=== PATIENT | male | born 1950 | race Caucasian/White ===

== ENCOUNTER 2018-10-12 15:46 | Observation (INO) | payer MEDICARE, OTHER ==
[~2018-10-12] VITALS: Ht 185.4 cm; Wt 99.2 kg
[2018-10-12] MEDS ORDERED: TIMOLOL MALEATE5 M2 OD (15:53)
[2018-10-12] MEDS ORDERED: SYNTHROID137 MCG PO (15:53)
--- NOTE | 2018-10-12 19:35 | NUR ---
PT ARRIVED TO THE FLOOR VIA STRETCHER AND TRANSFERED OVER TO THE BED. HE DENIES DIZZINESS, CP AND SOB. TELE IS IN PLACE AT THIS TIME. PT IS ORIENTED TO THE ROOM AND CALL LIGHT IS WITHIN REACH.
--- NOTE | 2018-10-12 19:55 | NUR ---
VITALS AND WEIGHT DONE AND CHARTED. FRESH ICE WATER AND SAND BOX GIVEN. BEDSIDE TABLE AND CALL LIGHT IN REACH.
--- NOTE | 2018-10-12 20:15 | NUR ---
HX ASSESSMENT IS COMPLETE AT THIS TIME. PT REPORTS NOT HAVING DINER WILL GET SANDWICH BOX. PT DENIES FURTHER NEEDS. CALL LIGHT IS WITHIN REACH.
--- NOTE | 2018-10-12 20:51 | NUR ---
ASSESSMENT AND MEDICATIONS DUE. ASSESSMENT DONE. TELE UNIT IN PLACE. MEDICATION GIVEN (SEE MAR). SITTING IN BED EATING SANDWICH. NO REQUESTS AT THIS TIME CALL LIGHT WITHIN REACH.
--- NOTE | 2018-10-13 00:01 | NUR ---
ROUNDED ON pt. RESTING WITH EYES CLOSED, RESPIRATIONS REGULAR IN RATE AND RHYTHM. CALL LIGHT WITHIN REACH.
--- NOTE | 2018-10-13 02:00 | NUR ---
VITALS AND I&OS DONE AND CHARTED. BEDSIDE TABLE AND CALL LIGHT IN REACH. FRESH ICE WATER GIVEN.
--- NOTE | 2018-10-13 02:30 | NUR ---
ASSESSMENT AND MEDICATIONS DUE. VSS. ASSESSMENT DONE. pt DENIES PAIN. NO REQUESTS AT THIS TIME. CALL LIGHT WITHIN REACH.
--- NOTE | 2018-10-13 04:36 | NUR ---
TELE LEAD OFF. pt RESTING WITH EYES CLOSED, RESPIRATIONS REGULAR. CALL LIGTH WITHIN REACH.
--- NOTE | 2018-10-13 04:55 | NUR ---
pt RESTED ON AND OFF DURING SHIFT. TELE 6, NSR, HR IN 70'S. SBA. SL. TOLERATING REGULAR DIET. USES CALL LIGHT APPROPRIATELY.
--- NOTE | 2018-10-13 07:20 | NUR ---
PT RESTING SUPINE IN BED WITH HOB ELEVATED. PT ALERT AND ORIENTED. PT DENIES CHEST PAIN/DISCOMFORT, SOB, PALPITATIONS OR ANY OTHER SYMPTOMS. PT REPORTS POOR SLEEP AT NIGHT DUE TO HOSPITAL BED BUT STATES OTHERWISE HE FEELS GREAT AND HAS NO REQUESTS OR CONCENRS REGARDING THE CARE HE IS RECEIVING. CALL LIGHT AND H20 IN REACH. BEDSIDE REPORT RECEIVED FROM CHET GARCIA.
--- NOTE | 2018-10-13 07:24 | NUR ---
PATIENT RESTING IN BED. PATIENT'S BREAKFAST ORDERED. CALL LIGHT WITHIN REACH. NO OTHER NEEDS AT THIS TIME
[2018-10-13] MEDS ORDERED: METOPROLOL SUCC25 MG PO (08:43)
[2018-10-13] MEDS ORDERED: ATORVASTATIN CA40 MG PO (08:43)
--- NOTE | 2018-10-13 09:59 | NUR ---
PT RESTING SUPINE IN BED, A/O X4. AM MEDS ADMINISTERED. ASSESSMENT COMPLETED. CALL LIGHT AND H20 IN REACH. PT CONTINUES TO DENY S/SX'S OR NEEDS/CONCERNS AT THIS TIME. FRESH ICE WATER WAS PROVIDED.
--- NOTE | 2018-10-13 10:20 | NUR ---
PATIENT RESTING IN BED. VITAL SIGNS AND I&O DONE. CALL LIGHT WITHIN REACH. NO OTHER NEEDS AT THIS TIME
[2018-10-13] MEDS ORDERED: MAGNESIUM250 M1 PO (11:46)
[2018-10-13] MEDS ORDERED: ELIQUIS5 MG PO (11:55)
[2018-10-13] MEDS ORDERED: DILTIAZEM 24HR120 MG PO (11:55)
[2018-10-13] MEDS ORDERED: XARELTO20 MG PO (13:33)
--- NOTE | 2018-10-13 13:39 | NUR ---
PATIENT SITTING UP IN BED. IN ROOM. FINAL VITAL SIGNS WERE OBTAINED BY RN PRIOR TO DISCHARGE FROM THE UNIT. I&O DONE.
--- NOTE | 2018-10-14 12:17 | EKG ---
[facility] [address] [facility] [place], [place] [address] Signed Supraventricular tachycardia with premature ventricular complexes or fusion complexes Left axis deviation Incomplete right bundle branch block Inferior infarct , age undetermined Abnormal ECG No previous ECGs available Confirmed by THALIA SMITH DO ([id number]) on 10/14/2018 12:16:43 PM Electronically Signed By: THALIA SMITH DO 10/14/18 1217 PATIENT NAME: TARIQKITA JOÃO Electrocardiogram DATE OF : 50 PHYSICIAN: THALIA SMITH DO REPORT #: [id number] REPORT IS CONFIDENTIAL AND NOT TO BE RELEASED WITHOUT AUTHORIZATION
--- NOTE | 2018-10-14 12:17 | EKG ---
[facility] [address] [facility] [place] [address] Signed Atrial flutter Inferior infarct (cited on or before 12-OCT-2018) Abnormal ECG When compared with ECG of 12-OCT-2018 15:44, (Unconfirmed) Atrial flutter has replaced Sinus rhythm Vent. rate has decreased BY 74 BPM QRS axis shifted right Nonspecific T wave abnormality has replaced inverted T waves in Inferior leads Confirmed by THALIA SMITH DO ([id number]) on 10/14/2018 12:16:45 PM Electronically Signed By: THALIA SMITH DO 10/14/18 1217 PATIENT NAME: KITA POTTER Electrocardiogram DATE OF : 50 PHYSICIAN: THALIA SMITH DO REPORT #: [id number] REPORT IS CONFIDENTIAL AND NOT TO BE RELEASED WITHOUT AUTHORIZATION
--- NOTE | 2018-10-14 12:17 | EKG ---
[facility] [address] [facility] [place], [place] [address] Signed Atrial flutter with 4:1 AV conduction Incomplete right bundle branch block Inferior infarct (cited on or before 12-OCT-2018) Abnormal ECG When compared with ECG of 12-OCT-2018 16:09, (Unconfirmed) No significant change was found Confirmed by THALIA SMITH DO ([id number]) on 10/14/2018 12:17:03 PM Electronically Signed By: THALIA SMITH DO 10/14/18 1217 PATIENT NAME: KITA POTTER Electrocardiogram DATE OF : 50 PHYSICIAN: THALIA SMITH DO REPORT #: [id number] REPORT IS CONFIDENTIAL AND NOT TO BE RELEASED WITHOUT AUTHORIZATION
== END 2018-10-13 13:45 | disposition home or self-care (01) ==
LOC: ED 15:46 → MS 15:47
PROVIDERS: ADMIT Student in an Organized Health Care Education/Training Program
DX: I48.92 Unspecified atrial flutter (principal); I48.91 Unspecified atrial fibrillation; I47.1 Supraventricular tachycardia; E03.9 Hypothyroidism, unspecified; I49.3 Ventricular premature depolarization; I21.A1 Myocardial infarction type 2; Z79.899 Other long term (current) drug therapy
CPT/HCPCS: 36415; 80048; 80053; 83735; 83880; 84436; 84439; 84443; 84484; 85025; 93005; 93010; 96374; 99285-25; G0378

== ENCOUNTER 2018-11-11 16:39 | Emergency (ER) | payer MEDICARE, OTHER ==
[~2018-11-11] VITALS: Ht 185.4 cm; Wt 98.9 kg
--- OUTSIDE RECORDS SUMMARY | ~2018-11-11 | XMS | Clinical Summary ---
Demographics + + + | Address | [address] | | | [place] [address] | + + + | Home Phone | | + + + | Preferred Language | Unknown | + + + | Marital Status | | + + + | Sabianism Affiliation | Unknown | + + + | Race | Unknown | + + + | Ethnic Group | Unknown | + + + Author + + + | Author | [facility] | + + + | Organization | [facility] | + + + | Address | Unknown | + + + | Phone | Unavailable | + + + Support + + +---------+ + | Name | Relationship | Address | Phone | + + +---------+ + | Argenis Schmid | ECON | Unknown | | + + +---------+ + Care Team Providers + +------+ + | Care Host Hostess Name | Role | Phone | + +------+ + | Alisson Perry MD | PP | | + +------+ + Allergies Not on File Current Medications Not on file Active Problems Not on file Encounters +--------+ + + + + | Date | Type | Specialty | Care Team | Description | +--------+ + + + + | 10/18/ | Documentati | | Marianne Reed, | | | 2019 | on Only | | MD | | +--------+ + + + + from Last 3 Months Social History + +-------+ +--------+------+ | Tobacco Use | Types | Packs/Day | Years | Date | | | | | Used | | + +-------+ +--------+------+ | Never Assessed | | | | | + +-------+ +--------+------+ + + + | Sex Assigned at | Date Recorded | | | | + + + | Not on file | | + + + Plan of Treatment +--------+ + + + + | Date | Type | Specialty | Care Team | Description | +--------+ + + + + | 12/18/ | Initial | | Livan Astorga, | | | 2019 | consult | | MD [address] | | | | | | [place], | | | | | | [place] [address] | | | | | | [phone] | | | | | | | | +--------+ + + + + + + + + + | Health Maintenance | Due Date | Last Done | Comments | + + + + + | Vaccine: | | | | | Dtap/Tdap/Td (1 - | 0 | | | | Tdap) | | | | + + + + + | Colon Cancer | | | | | Screening | 1 | | | | (Colonoscopy) | | | | + + + + + | Vaccine: Zoster (1 | | | | | of 2) | 1 | | | + + + + + | Vaccine: | | | | | Pneumococcal 65+ | 6 | | | | Low/Medium Risk (1 | | | | | of 2 - PCV13) | | | | + + + + + | Vaccine: Influenza | | | | | (Season Ended) | 9 | | | + + + + + Results Not on filefrom Last 3 Months Insurance + +--------+ +------+-------+ + | Payer | Benefi | Subscriber | Type | Phone | Address | | | t Plan | ID | | | | | | / | | | | | | | Group | | | | | + +--------+ +------+-------+ + | MEDICARE | MEDICA | [id number] | | | [address] | | | RE | | | | [place] [address] | | | IP-OP | | | | | + +--------+ +------+-------+ + | [employer] [place] | MUTUAL | [id number] | | | | | | [place] | | | | | | | [place] | | | | | + +--------+ +------+-------+ + + +--------+ +--------+ + + | Guarantor Name | Accoun | Relation to | Date | Phone | Billing Address | | | t Type | Patient | of | | | | | | | | | | + +--------+ +--------+ + + | JAMEL SCHMID | Person | Self [birth year] Home: | [address] | | | al/Fam | | 1951 | [phone] | [place], | | | gael | | | [phone] | [place] [address] | + +--------+ +--------+ + +"
--- OUTSIDE RECORDS SUMMARY | ~2018-11-11 | XMS | Encounter Summary ---
Demographics + + + | Address | [address] | | | [place] [address] | + + + | Home Phone | | + + + | Preferred Language | Unknown | + + + | Marital Status | | + + + | Gnosticism Affiliation | Unknown | + + + | Race | Unknown | + + + | Ethnic Group | Unknown | + + + Author + + + | Author | [facility] [employer] | + + + | Organization | [facility] | + + + | Address | Unknown | + + + | Phone | Unavailable | + + + Support + + +---------+ + | Name | Relationship | Address | Phone | + + +---------+ + | Argenis Schmid | ECON | Unknown | | + + +---------+ + Care Team Providers + +------+ + | Care Beading Sawyer Name | Role | Phone | + +------+ + | Alisson Perry MD | PCP | | + +------+ + Encounter Details +--------+ + + + + | Date | Type | Department | Care Team | Description | +--------+ + + + + | 10/18/ | Documentati | [facility] [place] | Marianne Reed, | | | 2018 | on Only | Sin Miller | [address] | | | | | [address] | [address], | | | | | [facility] [place] | [place] [address] | | | | | [address] | [phone] | | | | | [phone] | | | +--------+ + + + [...] + + | 12/18/ | Initial | Cardiology | Livan Astorga, | | | 2019 | consult | | MD [address] | | | | | | [place], | | | | | | [place] [address] | | | | | | [phone] | | | | | | | | +--------+ + + + + as of this encounter Visit Diagnoses Not on filein this encounter"
--- OUTSIDE RECORDS SUMMARY | ~2018-11-11 | XMS | Clinical Summary ---
Demographics + + + | Address | [address] | | | [place] [address] | + + + | Home Phone | | + + + | Preferred Language | Unknown | + + + | Marital Status | Single | + + + | Oriental Orthodox Affiliation | PRO | + + + [...] [place] | | | [place] | | [address] | | + + + + + Care Team Providers + +------+ + | Care Legal Support Assistant Name | Role | Phone | + +------+ + PP | Unavailable | + +------+ + Source Comments STIVEN is fully live on both [facility] and [facility] InPatient.[facility] Allergies No Known Allergies Current Medications [...]
--- OUTSIDE RECORDS SUMMARY | ~2018-11-11 | XMS | Encounter Summary ---
Demographics + + + | Address | [address] | | | [place] [address] | + + + | Home Phone | | + + + | Preferred Language | Unknown | + + + | Marital Status | | + + + | Gnosticist Affiliation | Unknown | + + + | Race | Unknown | + + + | Ethnic Group | Unknown | + + + Author + + + | Author | [facility] [employer] | + + + | Organization | [facility] [employer] [facility] | + + + | Address | Unknown | + + + | Phone | Unavailable | + + + Support + + +---------+ + | Name | Relationship | Address | Phone | + + +---------+ + | Argenis Schmid | ECON | Unknown | | + + +---------+ + Care Team Providers + +------+ + | Care Welt Insole Channeler Name | Role | Phone | + +------+ + | Alisson Perry MD | PCP | | + +------+ + Encounter Details +--------+ + + + + | Date | Type | Department | Care Team | Description | +--------+ + + + + | 10/18/ | Documentati | [facility] [place] | Marianne Reed, | | | 2018 | on Only | Sin [place] | [address] | | | | | [address] | [address], | | | | | [facility] [place] | [place] [address] | | | | | [address] | [phone] | | | | | [phone] | | | +--------+ + + + [...] | | | | | | [place] [address] | | | | | | [phone] | | | | | | | | +--------+ + + + + as of this encounter Visit Diagnoses Not on filein this encounter"
--- OUTSIDE RECORDS SUMMARY | ~2018-11-11 | XMS | Clinical Summary ---
Demographics + + + | Address | [address] | | | [place] [address] | + + + | Home Phone | | + + + | Preferred Language | Unknown | + + + | Marital Status | | + + + | Restorationist Affiliation | Unknown | + + + | Race | Unknown | + + + | Ethnic Group | Unknown | + + + Author + + + | Author | [facility] [employer] | + + + | Organization | [facility] | + + + | Address | Unknown | + + + | Phone | Unavailable | + + + Support + + +---------+ + | Name | Relationship | Address | Phone | + + +---------+ + | Argenis Schmid | ECON | Unknown | | + + +---------+ + Care Team Providers + +------+ + | Care Puttier Name | Role | Phone | + [...] | | | | | | [place] [address] | | | | | | [phone] | | | | | | | [...] +------+-------+ + | MEDICARE | MEDICA | [id number] | | | [address] | | | RE | | | | [place] [id number] | | | IP-OP | | | | | + +--------+ +------+-------+ + | [employer] [place] | MUTUAL | [id number] | | | | | | [place] | | | | | | | [place] | | | | | + +--------+ [...] | Self [birth year] Home: | [address] | | | al/Fam | | 1951 | [phone] | [place], | | | [place]ael | | | [phone] | [place] [address] | + +--------+ +--------+ + +"
--- OUTSIDE RECORDS SUMMARY | ~2018-11-11 | XMS | Clinical Summary ---
Demographics + + + | Address | [address] | | | [place] [address] | + + + | Home Phone | | + + + | Preferred Language | Unknown | + + + | Marital Status | Single | + + + | Restorationism Affiliation | PRO | + + + [...] [place] | | | [place] | | [address] | | + + + + + Care Team Providers + +------+ + | Care Parts Picker Name | Role | Phone | + +------+ + PP | Unavailable | + +------+ + Source Comments STIVEN is fully live on both [facility] Amb[facility] and [facility] InPatient.[facility] Allergies No Known Allergies Current Medications [...]
[~2018-11-11 16:39] MED LIST: ATORVASTATIN CA40 MG PO; DILTIAZEM 24HR120 MG PO; ELIQUIS5 MG PO; MAGNESIUM250 M1 PO; METOPROLOL SUCC25 MG PO; SYNTHROID137 MCG PO; TIMOLOL MALEATE5 M2 OD; XARELTO20 MG PO
--- OUTSIDE RECORDS SUMMARY | 2018-11-11 16:42 | XMS ---
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 EMadai VISIT COUNT (12 MO.) [address] [facility] TOTAL 2 NOTE: Visits indicate total known visits. 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
--- NOTE | 2018-11-13 13:56 | EKG ---
[facility] [address] [place] [address] Signed Supraventricular tachycardia Inferior infarct (cited on or before 12-OCT-2018) Abnormal ECG When compared with ECG of 12-OCT-2018 17:25, Supraventricular tachycardia has replaced Atrial flutter Vent. rate has increased BY 59 BPM Incomplete right bundle branch block is no longer present Confirmed by LULU SELLERS MD ([id number]) on 11/13/2018 1:56:01 PM Electronically Signed By: LULU SELLERS MD 11/13/18 1356 PATIENT NAME: KITA POTTER Electrocardiogram DATE OF : 50 PHYSICIAN: LULU SELLERS MD REPORT #: [id number] REPORT IS CONFIDENTIAL AND NOT TO BE RELEASED WITHOUT AUTHORIZATION
== END 2018-11-11 20:38 | disposition home or self-care (01) ==
LOC: ED 16:39
DX: I48.91 Unspecified atrial fibrillation (principal); E03.9 Hypothyroidism, unspecified; Z87.891 Personal history of nicotine dependence; Z79.899 Other long term (current) drug therapy
CPT/HCPCS: 80053; 84484; 85025; 93005; 93010; 96374; 96376; 99285-25

== ENCOUNTER 2018-11-22 09:48 | Emergency (ER) | payer MEDICARE, OTHER ==
[~2018-11-22] VITALS: Ht 185.4 cm; Wt 98.9 kg
--- OUTSIDE RECORDS SUMMARY | ~2018-11-22 | XMS | Encounter Summary ---
Demographics + + + | Address | [address] | | | [place] [address] | + + + | Home Phone | | + + + | Preferred Language | Unknown | + + + | Marital Status | | + + + | Shinto Affiliation | Unknown | + + + | Race | Unknown | + + + | Ethnic Group | Unknown | + + + Author + + + | Author | [facility] | | | and [place] | + + + | Organization | [facility] | | | and [...] Team Providers + +------+ + | Care Manufacturing Worker Name | Role | Phone | + [...] (Primary Dx); Lumbar | | | | [place], [place] | [place] [address] | radiculopathy | | | | [address] | [phone] | | | | | [phone] | | | +--------+---------+ + + + [...] encounter Patient Instructions Patient Instructions Francis Sherwood, Associate Dentist - 09/27/2018 12:30 PSTIt was a pleasu [...] 09/27/2018 1230 PST Marilu Rodriguez PA-C [address] [facility] [address] [address] [place] [address] PHONE: FAX: NEUROSURGERY FOLLOW-UP CHIEF COMPLAINT: Chief [...] has no apparent deficits with short or halfway memory. CRANIAL NERVES: II: Acuity is intact. [...] Description | +--------+---------+ + + + | 11/28/ | Office | Physical Medicine | Michael Talley, | | | 2018 | Visit | and Rehabilitation | [place] | | | | | | [address] | | | | | | [place] [address] | | | | | | [phone] | | | | | | | | +--------+---------+ + + + | 01/29/ | Office | Cardiology | Gordon Paula, | | | 2018 | Visit | | [address] | | | | | | [place], | | | | | | [place] [address] | | | | | | [phone] | | | | | | | | +--------+---------+ + + + | 09/26/ | Office | Neurosurgery | Darlyn Rodriguez | | | 2019 | Visit | | [place] | | | | | | [place] [place], | | | | | | [place] [address] | | | | | | [phone] | | | | | | | [...]
--- OUTSIDE RECORDS SUMMARY | ~2018-11-22 | XMS | Encounter Summary ---
Demographics + + + | Address | [address] | | | [place] [address] | + + + | Home Phone | | + + + | Preferred Language | Unknown | + + + | Marital Status | | + + + | Christian Affiliation | Unknown | + + + | Race | Unknown | + + + | Ethnic Group | Unknown | + + + Author + + + | Author | [facility] [employer] | + + + | Organization | [facility] [employer] [facility] | + + + | Address | Unknown | + + + | Phone | Unavailable | + + + Support + + +---------+ + | Name | Relationship | Address | Phone | + + +---------+ + | Argenis Schmid | ECON | Unknown | | + + +---------+ + Care Team Providers + +------+ + | Care Career Discovery Teacher Name | Role | Phone | + [...] | | | | | | [place] | | | | | | [address] | | | | | | [phone] | | | +--------+ + + + [...] | +--------+ + + + + | 12/03/ | Documentati | Cardiology | Livan Astorga, | | | 2018 | on Only | | MD [address] | | | | | | [place] | | | | | | [place] [address] | | | | | | [phone] | | | | | | | | +--------+ + + + + | 01/21/ | Office | Cardiology | Aga Kelley | | | 2019 | Visit | | [address] | | | | | [address] | | | | | | [place] [address] | | | | | | [phone] | | | | | | | | +--------+ + + + + as of this encounter Visit Diagnoses Not on filein this encounter"
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
--- OUTSIDE RECORDS SUMMARY | ~2018-11-22 | XMS | Encounter Summary ---
Demographics + + + | Address | [address] | | | [place] [address] | + + + | Home Phone | | + + + | Preferred Language | Unknown | + + + | Marital Status | | + + + | Caodaism Affiliation | Unknown | + + + | Race | Unknown | + + + | Ethnic Group | Unknown | + + + Author + + + | Author | [facility] | + + + | Organization | [facility] [facility] | + + + | Address | Unknown | + + + | Phone | Unavailable | + + + Support + + +---------+ + | Name | Relationship | Address | Phone | + + +---------+ + | Argenis Schmid | ECON | Unknown | | + + +---------+ + Care Team Providers + +------+ + | Care Toter Name | Role | Phone | + [...] | | | | | | [place] | | | | | | [address] | | | | | | [phone] | | | +--------+ + + + [...] | | | | | | [place] [address] | | | | | | [phone] | | | | | | | | +--------+ + + + + | 01/21/ | Office | Cardiology | Aga Kelley | | | 2019 | Visit | | [address] | | | | | | [address] | | | | | | [place] [address] | | | | | | [phone] | | | | | | | | +--------+ + + + + as of this encounter Visit Diagnoses Not on filein this encounter"
--- OUTSIDE RECORDS SUMMARY | ~2018-11-22 | XMS | Encounter Summary ---
Demographics + + + | Address | [address] | | | [place] [address] | + + + | Home Phone | | + + + | Preferred Language | Unknown | + + + | Marital Status | | + + + | Muslim Affiliation | Unknown | + + + | Race | Unknown | + + + | Ethnic Group | Unknown | + + + Author + + + | Author | [facility] [employer] | + + + | Organization | [facility] [employer] | + + + | Address | Unknown | + + + | Phone | Unavailable | + + + Support + + +---------+ + | Name | Relationship | Address | Phone | + + +---------+ + | Argenis Schmid | ECON | Unknown | | + + +---------+ + Care Team Providers + +------+ + | Care Roll Cleaner Name | Role | Phone | + +------+ + | Alisson Perry MD | PCP | | + +------+ + Encounter Details +--------+ + + + + | Date | Type | Department | Care Team | Description | +--------+ + + + + | 10/18/ | Documentati | [facility] [place] | [place] Reed, | | | 2018 | on Only | Sin Miller | [address] | | | | | [address] | [address], | | | | | [facility] [place] | [place] [address] | | | | | [address] | [phone] | | | | | [phone] | | | +--------+ + + + + Social History + +-------+ +--------+------+ | Tobacco [...] | 2018 | on Only | | [address] | | | | | | [place] | | | | | | [place] [address] | | | | | | [phone] | | | | | | | | +--------+ + + + + | 01/21/ | Office | Cardiology | Aga Kelley | | | 2019 | Visit | | [address] | | | | | | [address] | | | | | | [place] [address] | | | | | | [phone] | | | | | | | | +--------+ + + + + as of this encounter Visit Diagnoses Not on filein this encounter"
--- OUTSIDE RECORDS SUMMARY | ~2018-11-22 | XMS | Clinical Summary ---
Demographics + + + | Address | [address] | | | [place] [address] | + + + | Home Phone | | + + + | Preferred Language | Unknown | + + + | Marital Status | Single | + + + | Anglican Affiliation | PRO | + + + | Race | White | + + + | Ethnic Group | Not or | + + + Author + + + | Organization | Unknown | + + + | Address | Unknown | + + + | Phone | Unavailable | + + + Support + + + + + | Name | Relationship | Address | Phone | + + + + + | STELLA POTTER&JONEL | ECON | [place] | | | [place] | | [address] | | + + + + + Care Team Providers + +------+ + | Care Production Clerks Supervisor Name | Role | Phone | + +------+ + PP | Unavailable | + +------+ + Source Comments STIVEN is fully live on both [facility] Ambulatory and [facility] InPatient.[facility] Allergies No Known Allergies Current Medications Not on file Active Problems Not on file Social History + +-------+ +--------+------+ | Tobacco [...] | + + + Plan of Treatment + + + + + | Health Maintenance | Due Date | Last Done | Comments | + + + + + | Pneumococcal (Adult) | | | | | (1 of 2 - PCV13) | 6 | | | + + + + + | Influenza (Flu) | | | | | vaccination (#1) | 8 | | | + + + + + Results Not on filefrom Last 3 Months"
--- OUTSIDE RECORDS SUMMARY | ~2018-11-22 | XMS | Encounter Summary ---
Demographics + + + | Address | [address] | | | [place] [address] | + + + | Home Phone | | + + + | Preferred Language | Unknown | + + + | Marital Status | | + + + | Shinto Affiliation | Unknown | + + + | Race | Unknown | + + + | Ethnic Group | Unknown | + + + Author + + + | Author | [facility] | + + + | Organization | [facility] | + + + | Address | Unknown | + + + | Phone | Unavailable | + + + Support + + +---------+ + | Name | Relationship | Address | Phone | + + +---------+ + | Argenis Schmid | ECON | Unknown | | + + +---------+ + Care Team Providers + +------+ + | Care Java Web Application Developer Name | Role | Phone | + [...] | | | | of breath) | [address] | [address] | | | | | on exertion | Phone: | Phone: | | | | | Narinder | [phone] | [phone] | | | | | coronary | Fax: | Fax: | | | | | artery | [phone] | [phone] | | | | | calcium | [...] | Specialty | Sleep | Diagnoses | [place], | Lab, [facility] | | | Services | Medicine | Paroxysmal | Livan Thomson, | [facility] | | | Required | | atrial | MD [address] | Sleep | | | | | fibrillation | [address] | Disorders | | | | | ([facility]LY [facility]) | [address] | [facility] | | | | | Obstructive | [place], [place] | HOSPITAL | | | | | sleep apnea | [address] | [address] | | | | | syndrome in | Phone: | [address] | | | | | adult SOB | [phone] | [place], [place] | | | | | (shortness | Fax: | [address] | | | | | of breath) | [phone] | Phone: | | | | | on exertion | | [phone] | | | | | | | Fax: | | | | | | | [phone] | + + + + + + [...] | DR | | | | | (FORM[facility]) | [address] | [place] | | | | | Frequent | [place] | [address] | | | | | PVCs | [address] | Phone: | | | | | | Phone: | [phone] | | | | | | [phone] | Fax: | | | | | | Fax: | [phone] | | | | | | [phone] | | + + + + + [...] Dr Oshea | | | | | ([facility]) | [place], | [place] | | | | | Procedures | [place] [address] | [address] Phone: | | | | | Consult | Phone: | [phone] | | | | | | [phone] | Fax: | | | | | | Fax: | [phone] | | | | | | [phone] | | +--------+--------+ + + + + Encounter Details +--------+ + + + + | Date | Type | Department | Care Team | Description | +--------+ + + + + | 11/19/ | Initial | [facility] [place] | Livan Astorga, | Paroxysmal atrial | | 2019 | consult | Cardiology Garo | [address] | fibrillation ([facility]) | | | | [address] | [place], [place]na (Primary Dx); | | | | [place], [place] | [place] [address] | Frequent PVCs; | | | | [address] | [phone] | Hyperlipidemia, | | | | [phone] | | unspecified | | | | [...] cardiology evaluati on, after being admitted to [facility] 10/12-04/25 for paroxysmal atrial fibrillati on. [...] episode in November, was seen at [facility] ER 11/11/18, and a repeat [...] been followed by Gordon Paula MD in [place] for frequent PVCs, h ad become asymptomatic [...] for a sleep stud y at the [facility] sleep clinic. I will see him [...] Diagnosis Date Atrial fibrillation (HCC) 10/12/2018 Paroxysmal, [id number] VASc 2 BPH (benign prostatic hyperplasia) DDD [...] [place], | | | | | | [place] [address] | | | | | | [phone] | | | | | | | | +--------+ + + + + | 01/21/ | Office | Cardiology | Allie Aga | | | 2019 | Visit | | [address] | | | | | | [address] | | | | | | [place] [address] | | | | | | [phone] | | | | | | | [...] + + + + | Calculated P Union | 72 | degrees | [facility] | + + + + + | Calculated R Union | 68 | degrees | [facility] | + + + + + | Calculated T [place] | 71 | degrees | [facility] | + + + [...] | | | | | by [facility] [place] Read Only, | | | | | [facility] David (502), | | | | | assignment editor Dung Dominguez | | | | | (253) on 11/19/2018 | | | | | 9:17:15 AM | | | + + + + + + + + + + | Performing | Address | City/State/Zipcode | Phone Number | | Organization | | | | + + + + + | [facility] | [address] | [place] [address] | | + + + + + [...]
--- OUTSIDE RECORDS SUMMARY | ~2018-11-22 | XMS | Clinical Summary ---
Demographics + + + | Address | [address] | | | [place] [address] | + + + | Home Phone | | + + + | Preferred Language | Unknown | + + + | Marital Status | | + + + | Moravian Affiliation | Unknown | + + + | Race | Unknown | + + + | Ethnic Group | Unknown | + + + Author + + + | Author | [facility] | | | and Arnolana | + + + | Organization | [facility] | | | and [...] Team Providers + +------+ + | Care Cutter Down Name | Role | Phone | + +------+ + | Alisson Perry MD | PP | | + +------+ + Allergies No Known Allergies Medications + + + +---------+------+------+-------+ | Medication | Sig | Dispensed | Refills | Star | End | Statu | | | | | | t | Date | s | | | | | | Date | | | + + + +---------+------+------+-------+ | levothyroxine | take 1 tablet by | | 1 | 10/0 | | Activ | | (SYNTHROID, | mouth once daily | | | 3/20 | | e | | LEVOTHROID) 137 MCG | | | | 16 | | | | tablet | | | | | | | + + + +---------+------+------+-------+ | ALOE VERA JUICE PO | Take by mouth. | | 0 | | | Activ | | | Drinks 4oz glass | | | | | e | | | every am | | | | | | + + + +---------+------+------+-------+ Active Problems + + + | Problem | Noted Date | + + + | Lumbar radiculopathy | 09/13/2017 | + + + | Foraminal stenosis of lumbar region | 09/13/2017 | + + + | Lumbar facet arthropathy | 09/13/2017 | + + + | Spondylosis of lumbar joint | 09/13/2017 | + + + | Degenerative disc disease, lumbar | 09/13/2017 | + + + | PVC (premature ventricular contraction) | 12/27/2016 | + + + + + | Overview: Echocardiogram 12/14/2016 shows the left ventricle | | is normal in size, wall thickness and systolic function EF | | 55-60%, the right ventricle is normal in size and function, | | pulmonary artery systolic pressure could not be assessed due to | | the absence of adequate TR jet, there is no pericardial effusion. | | Dr. Ildefonso Pillai. | + + + + + | Hyperlipidemia | 12/27/2016 | + + + | Ventricular premature depolarization | 12/27/2016 | + + + + + | Overview: CT Heart 12/14/2016 The calcium score is 756, which | | is between the 75th and 90th percentile. Polly Tan MD | + + + + + | Preventative health care | 06/14/2016 | + + + | GERD (gastroesophageal reflux disease) | 06/14/2016 | + + + | Dysphagia | 06/14/2016 | + + + | Prostatic hyperplasia, benign localized | | + + + | Urinary frequency | | + + + + + | Overview: at night | + + + +---+ | Peyronie's disease | | + +---+ | Palpitations | | + +---+ + + | Overview: if he stands up to fast | + + + +---+ | Impaired fasting glucose | | + +---+ | Hypothyroidism | | + +---+ | Heartburn | | + +---+ | Allergic rhinitis | | + +---+ | PVC's (premature ventricular contractions) | | + +---+ | Chest pain | | + +---+ + + | Overview: Stress Test on 01/13/2017 shows exercise EKG is | | negative, blood pressure response is normal, the patient had | | Fatigue but no chest pain during the procedure, there is | | occasional premature atrial contractions during procedure, | | exercise tolerance is average for age, normal exercise sestamibi | | myocardial perfusion imaging study. normal left ventricular | | size, wall thickness and motion. Evidence of inferior wall soft | | tissue attenuation. Preserved left ventricular systolic | | function. LVEF by gated SPECT is 67 %. | + + Encounters +--------+---------+ + + + | Date | Type | Specialty | Care Team | Description | +--------+---------+ + + + | 09/27/ | Office | | Darlyn Rodriguez | Degenerative disc | | 2019 | Visit | | GALILEA Milner | disease, lumbar | | | | | | (Primary Dx); Lumbar | | | | | | radiculopathy | +--------+---------+ + + + from Last 3 Months Family History + + +------+ + | Medical History | Relation | Name | Comments | + + +------+ + | No known problems | Brother | | | + + +------+ + | No known problems | Child | | | + + +------+ + | No known problems | Child | | | + + +------+ + | No known problems | Child | | | + + +------+ + | Colon cancer | Father | | | + + +------+ + | Early | Father | | Suicide | + + +------+ + | Heart disease | Father | | | + + +------+ + | No known problems | Maternal | | | | | Grandfath | | | | | er | | | + + +------+ + | No known problems | Maternal | | | | | Grandmoth | | | | | er | | | + + +------+ + | Asthma | Mother | | | + + +------+ + | Diabetes | Mother | | | + + +------+ + | Heart failure | Mother | | | + + +------+ + | Lymphoma | Mother | | | + + +------+ + | No known problems | Paternal | | | | | Grandfath | | | | | er | | | + + +------+ + | No known problems | Paternal | | | | | Grandmoth | | | | | er | | | + + +------+ + | No known problems | Sister | | | + + +------+ + + +------+ + + | Relation | Name | Status | Comments | + +------+ + + | Brother | | | | + +------+ + + | Child | | | | + +------+ + + | Child | | | | + +------+ + + | Child | | | | + +------+ + + | Father | | | Suicide, starvation | | | | (Age | | | | | 89) | | + +------+ + + | Maternal Grandfather | | | | + +------+ + + | Maternal Grandmother | | | | + +------+ + + | Mother | | | YOA, CHF | | | | (Age | | | | | 85) | | + +------+ + + | Paternal Grandfather | | | | + +------+ + + | Paternal Grandmother | | | | + +------+ + + | Sister | | | | + +------+ + + Social History + + + [...] recent travel history available. | + + Last Filed Vital Signs + + + + | Vital Sign | Reading | Time Taken | + + + + | Blood Pressure | 116/74 | 09/27/2018 1247 PST | + + + + | Pulse | 81 | 09/27/2018 1247 PST | + + + + | Temperature | 36.4 C (97.5 F) | 06/15/2016 1100 PST | + + + + | Respiratory Rate | 16 | 12/21/2017 0949 PDT | + + + + | Oxygen Saturation | 96% | 06/15/2016 1330 PST | + + + + | Inhaled Oxygen | - | - | | Concentration | | | + + + + | Weight | 99.5 kg (219 lb 6.4 | 09/27/20181246 PST | | | oz) | | + + + + | Height | 185.4 cm (6' 1") | 09/27/20181246 PST | + + + + | Body Mass Index | 28.95 | 09/27/20181246 PST | + + + + Plan of Treatment +--------+---------+ + + + | Date | Type | Specialty | Care Team | Description | +--------+---------+ + + + | 11/28/ | Office | | Michael Talley, | | | 2018 | Visit | | GALILEA [address] | | | | | | [address] [place] | | | | | | [place] [address] | | | | | | [phone] | | | | | | | | +--------+---------+ + + + | 01/29/ | Office | | Gordon Paula, | | | 2018 | Visit | | MD Mercedes Moreno | | | | | | [place], | | | | | | [place] [address] | | | | | | [phone] | | | | | | | | +--------+---------+ + + + | 09/26/ | Office | | Darlyn Rodriguez | | | 2019 | Visit | | GALILEA Milner | | | | | | [place], | | | | | | [place] [address] | | | | | | [phone] | | | | | | | | +--------+---------+ + + + + + + + + | Health Maintenance | Due Date | Last Done | Comments | + + + + + | Hepatitis C | | | | | Screening | 1 | | | + + + + + | Vaccine: | | | | | Dtap/Tdap/Td (1 - | 0 | | | | Tdap) | | | | + + + + + | Vaccine: Zoster (2 | | 06/23/2011 | | | of 3) | 2 | | | + + + + + | Adult Annual | | | | | Wellness Visit | 5 | | | + + + + + | Statin Therapy | | | | | (optimal intensity) | 5 | | | + + + + + | AAA Screening | | | | | | 6 | | | + + + + + | Vaccine: | | 05/12/2017 | | | Pneumococcal 65+ | 8 | | | | Low/Medium Risk (2 | | | | | of 2 - PCV13) | | | | + + + + + | Vaccine: Influenza | | 05/12/2017 | | | (Season Ended) | 9 | | | + + + + + | Colorectal Cancer | | 06/15/2016, 05/01/2006, | | | Screening | 6 | 05/01/2006 | | | (Colonoscopy) | | | | + + + + + Results Not on filefrom Last 3 Months Insurance + +--------+ +--------+ +---------+--------+ | Payer | Benefi | Subscriber | Effect | Phone | Address | Type | | | t Plan | ID | sendy | | | | | | / | | Dates | | | | | | Group | | | | | | + +--------+ +--------+ +---------+--------+ | MEDICARE | MEDICA | [id number] | 11/06/19 | [phone] | | Medica | | | RE | | 16-Pre | 5 | | re | | | PART A | | sent | | | | | | AND B | | | | | | + +--------+ +--------+ +---------+--------+ | [employer] [place] | UNITED | [id number] | 11/06/19 | [phone] | | Indemn | | | OF | | 16-Pre | 0 | | ity | | | [place] | | sent | | | | | | MDCR | | | | | | | | SUPPL | | | | | | + +--------+ +--------+ +---------+--------+ + +--------+ +--------+ + + | Guarantor Name | Accoun | Relation to | Date | Phone | Billing Address | | | t Type | Patient | of | | | | | | | | | | + +--------+ +--------+ + + | Jamel Schmid | Person | Self | [birth year] | [address] | | | al/Fam | | [address] | [phone] | [place], | | | gael | | | [address] (Home) | [place] [address] | + +--------+ +--------+ + + Advance Directives Patient has advance care planning documents on file. For more information, please contact:[facility] [place] [address]
--- OUTSIDE RECORDS SUMMARY | ~2018-11-22 | XMS | Clinical Summary ---
Demographics + + + | Address | [address] | | | [place] [address] | + + + | Home Phone | | + + + | Preferred Language | Unknown | + + + | Marital Status | Single | + + + | Catholic Affiliation | PRO | + + + [...] [place] | | | [place] | | [address] | | + + + + + Care Team Providers + +------+ + | Care Patient Financial Representative Name | Role | Phone | + +------+ + PP | Unavailable | + +------+ + Source Comments STIVEN is fully live on both [facility] Ambulatory and [facility] InPatient.[facility] [...]
--- OUTSIDE RECORDS SUMMARY | ~2018-11-22 | XMS | Encounter Summary ---
Demographics + + + | Address | [address] | | | [place] [address] | + + + | Home Phone | | + + + | Preferred Language | Unknown | + + + | Marital Status | | + + + | Hinduism Affiliation | Unknown | + + + | Race | Unknown | + + + | Ethnic Group | Unknown | + + + Author + + + | Author | [facility] | + + + | Organization | [facility] [employer] [facility] | + + + | Address | Unknown | + + + | Phone | Unavailable | + + + Support + + +---------+ + | Name | Relationship | Address | Phone | + + +---------+ + | Argenis Schmid | ECON | Unknown | | + + +---------+ + Care Team Providers + +------+ + | Care Administrative Fellow Name | Role | Phone | + +------+ + | Alisson Perry MD | PCP | | + +------+ + Encounter Details +--------+ + + + + | Date | Type | Department | Care Team | Description | +--------+ + + + + | 10/18/ | Documentati | [facility] [place] | Marianne Reed, | | | 2018 | on Only | Sin Miller | [address] | | | | | [address] | [address] Foreman, | | | | | [facility] | [place] [address] | | | | | [address] | [phone] | | | | | [phone] | | | +--------+ + + + [...] | | | | | | [place] [address] | | | | | | [phone] | | | | | | | | +--------+ + + + + | 01/21/ | Office | Cardiology | Aga Kelley | | | 2019 | Visit | | [address] | | | | | | [address] | | | | | | [place] [address] | | | | | | [phone] | | | | | | | | +--------+ + + + + as of this encounter Visit Diagnoses Not on filein this encounter"
--- OUTSIDE RECORDS SUMMARY | ~2018-11-22 | XMS | Clinical Summary ---
Demographics + + + | Address | [address] | | | [place] [address] | + + + | Home Phone | | + + + | Preferred Language | Unknown | + + + | Marital Status | | + + + | Orthodoxy Affiliation | Unknown | + + + | Race | Unknown | + + + | Ethnic Group | Unknown | + + + Author + + + | Author | [facility] | + + + | Organization | [facility] [email or web address] [facility] | + + + | Address | Unknown | + + + | Phone | Unavailable | + + + Support + + +---------+ + | Name | Relationship | Address | Phone | + + +---------+ + | Argenis Schmid | ECON | Unknown | | + + +---------+ + Care Team Providers + +------+ + | Care Electronics Tech Name | Role | Phone | + [...] + + + + | Overview: Paroxysmal, [id number] VASc 2 | + + + +---+ | Frequent PVCs | | + +---+ | Hyperlipidemia | | + +---+ | Hypothyroidism | | + +---+ Encounters +--------+ + + + + | Date | Type | Specialty | Care Team | Description | +--------+ + + + + | 11/21/ | Documentati | | Deyanira Smith, | Other ([facility] | 2018 | on Only | | [place] | labs 11/11/18) | +--------+ + + + + | 11/20/ | Documentati | | Deyanira Smith, | Other ([facility] | 2018 | on Only | | [...] | Documentati | | Livan Astorga, | | | 2018 | on Only | | MD [address] | | | | | | [place], | | | | | | [place] [address] | | | | | | [phone] | | | | | | | | +--------+ + + + + | 01/21/ | Office | | Aga Kelley | | | 2019 | Visit | | [address] | | | | | | [address] | | | | | | [place] [address] | | | | | | [phone] | | | | | | | [...] Ventricular Rate | 61 | BPM | [facility] [...] + + + + | Calculated P [place] | 72 | degrees | [facility] | + + + + + | Calculated R [place] | 68 | degrees | [facility] | + + + + + | Calculated T [place] | 71 | degrees | [facility] [...] | | | | | by [facility] [place] Read Only, | | | | | [facility] David (502), | | | | | order editor Dung Dominguez | | | | | (253) on 11/19/2018 | | | | | 9:17:15 AM | | | + + + + + + + + + + | Performing | Address | City/State/Zipcode | Phone Number | | Organization | | | | + + + + + | [facility] | [address] | [place] [address] | | + + + + + [...] +------+-------+ + | MEDICARE | MEDICA | [id number] | | | [address] | | | RE | | | | [place], [place] [address] | | | IP-OP | | | | | + +--------+ +------+-------+ + | [employer] [place] | MUTUAL | [id number] | | | | | | [place] | | | | | | | [place] | | | | | + +--------+ [...] | Self | [birth year] Home: | [address] | | | al/Fam | | 1 | [phone] | [place], | | | gael | | | [address] | [place] [address] | + +--------+ +--------+ + +
--- OUTSIDE RECORDS SUMMARY | ~2018-11-22 | XMS | Encounter Summary ---
Demographics + + + | Address | [address] | | | [place] [address] | + + + | Home Phone | | + + + | Preferred Language | Unknown | + + + | Marital Status | | + + + | Jehovah'S Witness Affiliation | Unknown | + + + | Race | Unknown | + + + | Ethnic Group | Unknown | + + + Author + + + | Author | [facility] | + + + | Organization | [facility] [employer] [facility] | + + + | Address | Unknown | + + + | Phone | Unavailable | + + + Support + + +---------+ + | Name | Relationship | Address | Phone | + + +---------+ + | Argenis Schmid | ECON | Unknown | | + + +---------+ + Care Team Providers + +------+ + | Care Groover And Striper Operator Name | Role | Phone | [...] + + | 11/21/ | Documentati | GUILIA Romano | Deyanira Smith, | Other ([facility] | | 2019 | on Only | Cardiology Angela | DAREK | labs 11/11/18) | | | | [address] | | | | | | [place], [place] | | | | | | [address] | | | | | | [phone] | | | +--------+ + + + [...] | | | | | | [place] [address] | | | | | | [phone] | | | | | | | | +--------+ + + + + | 01/21/ | Office | Cardiology | Aga Kelley | | | 2019 | Visit | | [address] | | | | | | [address] | | | | | | [place] [address] | | | | | | [phone] | | | | | | | | +--------+ + + + + as of this encounter Visit Diagnoses Not on filein this encounter"
--- OUTSIDE RECORDS SUMMARY | ~2018-11-22 | XMS | Encounter Summary ---
Demographics + + + | Address | [address] | | | [place] [address] | + + + | Home Phone | | + + + | Preferred Language | Unknown | + + + | Marital Status | | + + + | Nondenominational Affiliation | Unknown | + + + | Race | Unknown | + + + | Ethnic Group | Unknown | + + + Author + + + | Author | [facility] | | | and Arnolana | + + + | Organization | [facility] | | [...] Providers + +------+ + | Care Hadoop Developer Name | Role | Phone | [...] (Primary Dx); Lumbar | | | | [place], [place] | [place] [address] | radiculopathy | | | | [address] | [phone] | | | | | [phone] | | | +--------+---------+ + + + [...] encounter Patient Instructions Patient Instructions Francis Sherwood, Basket Assembler - 09/27/2018 12:30 PSTIt was a pleasu [...] 09/27/2018 1230 PST Marilu Rodriguez PA-C [address], [address] [place] [address] PHONE: FAX: NEUROSURGERY FOLLOW-UP CHIEF COMPLAINT: Chief [...] has no apparent deficits with short or nursing home memory. CRANIAL NERVES: II: Acuity is intact. [...] | | | | | | [place] [address] | | | | | | [phone] | | | | | | | | +--------+---------+ + + + | 01/29/ | Office | Cardiology | Gordon Paula, | | | 2018 | Visit | | [address] [place] | | | | | | [place], | | | | | | [place] [address] | | | | | | [phone] | | | | | | | | +--------+---------+ + + + | 09/26/ | Office | Neurosurgery | Darlyn Rodriguez | | | 2019 | Visit | | G[address]ILEA [address]ner [address] | | | | | | [place], | | | | | | [place] [address] | | | | | | [phone] | | | | | | | [...]
--- OUTSIDE RECORDS SUMMARY | ~2018-11-22 | XMS | Clinical Summary ---
Demographics + + + | Address | [address] | | | [place] [address] | + + + | Home Phone | | + + + | Preferred Language | Unknown | + + + | Marital Status | | + + + | Baptism Affiliation | Unknown | + + + | Race | Unknown | + + + | Ethnic Group | Unknown | + + + Author + + + | Author | [facility] | + + + | Organization | [facility] | + + + | Address | Unknown | + + + | Phone | Unavailable | + + + Support + + +---------+ + | Name | Relationship | Address | Phone | + + +---------+ + | Argenis Schmid | ECON | Unknown | | + + +---------+ + Care Team Providers + +------+ + | Care Student Finance Advisor Name | Role | Phone | + [...] + + + + | Overview: Paroxysmal, [id number] VASc 2 | + + + +---+ [...] | | | | | | [place] [address] | | | | | | [phone] | | | | | | | | +--------+ + + + + | 01/21/ | Office | | Aga Kelley | | | 2019 | Visit | | [address] | | | | | | [address] | | | | | | [place] [address] | | | | | | [phone] | | | | | | | [...] + + + + | Calculated P [place] | 72 | degrees | [facility] | + + + + + | Calculated R [place] | 68 | degrees | [facility] | + + + + + | Calculated T [place] | 71 | degrees | [facility] [...] | | | | | by [facility] [place] Read Only, | | | | | [facility] [address] (502), | | | | | associate editor Dung Dominguez | | | | | (253) on 11/19/2018 | | | | | 9:17:15 AM | | | + + + + + + + + + + | Performing | Address | City/State/Zipcode | Phone Number | | Organization | | | | + + + + + | [facility] | [address] | [place] [address] | | + + + + + [...] +------+-------+ + | MEDICARE | MEDICA | [id number] | | | [address] | | | RE | | | | [place], [place] [address] | | | IP-OP | | | | | + +--------+ +------+-------+ + | [employer] [place] | MUTUAL | [id number] | | | | | | [place] | | | | | | | [place] | | | | | + +--------+ [...] | Self | [birth year] Home: | [address] | | | al/Fam | | [phone] | [phone] | [place], | | | gael | | | [address] | [place] [address] | + +--------+ +--------+ + +
--- OUTSIDE RECORDS SUMMARY | ~2018-11-22 | XMS | Encounter Summary ---
Demographics + + + | Address | [address] | | | [place] [address] | + + + | Home Phone | | + + + | Preferred Language | Unknown | + + + | Marital Status | | + + + | Latter Day Affiliation | Unknown | + + + | Race | Unknown | + + + | Ethnic Group | Unknown | + + + Author + + + | Author | [facility] | + + + | Organization | [facility] [facility] | + + + | Address | Unknown | + + + | Phone | Unavailable | + + + Support + + +---------+ + | Name | Relationship | Address | Phone | + + +---------+ + | Argenis Schmid | ECON | Unknown | | + + +---------+ + Care Team Providers + +------+ + | Care Contact Assembler Name | Role | Phone | + [...] SOW | | | | | | [place], [place] | | | | | | [address] | | | | | | [phone] | | | +--------+ + + + [...] | | | | | | [place] [address] | | | | | | [phone] | | | | | | | | +--------+ + + + + | 01/21/ | Office | Cardiology | Aga Kelley | | | 2019 | Visit | | [address] | | | | | | [address] | | | | | | [place] [address] | | | | | | [phone] | | | | | | | | +--------+ + + + + as of this encounter Visit Diagnoses Not on filein this encounter"
--- OUTSIDE RECORDS SUMMARY | ~2018-11-22 | XMS | Clinical Summary ---
Demographics + + + | Address | [address] | | | [place] [address] | + + + | Home Phone | | + + + | Preferred Language | Unknown | + + + | Marital Status | | + + + | Jehovah'S Witness Affiliation | Unknown | + + + | Race | Unknown | + + + | Ethnic Group | Unknown | + + + Author + + + | Author | [facility] | | | and Arnolana | + + + | Organization | [facility] | | | and [...] Team Providers + +------+ + | Care Meal Attendant Name | Role | Phone | + [...] | 09/27/ | Office | | Darlyn oRdriguez | Degenerative disc | | 2019 | [...] | | | | | | [place] [address] | | | | | | [phone] | | | | | | | | +--------+---------+ + + + | 01/29/ | Office | | Gordon Paula, | | | 2018 | Visit | | MD Mercedes Moreno | | | | | | [place], | | | | | | [place] [address] | | | | | | [phone] | | | | | | | | +--------+---------+ + + + | 09/26/ | Office | | Darlyn Rodriguez | | | 2019 | Visit | | GALILEA Milner | | | | | | [place], | | | | | | [place] [address] | | | | | | [phone] | | | | | | | [...] +--------+ +---------+--------+ | MEDICARE | MEDICA | [id number] | 11/06/19 | [phone] | | Medica | | | RE | | 16-Pre | 5 | | re | | | PART A | | sent | | | | | | AND B | | | | | | + +--------+ +--------+ +---------+--------+ | [employer] | UNITED | [id number] | 11/06/19 | [phone] | | Indemn | | | OF | | 16-Pre | 0 | | ity | | | [place] | | sent | | | | [...] Person | Self | [birth year] | | [address] | | | al/Fam | | [address] | [phone] | [place] [address] [place], | | | gael | | | [address] (Home) | [place] [address] | + +--------+ +--------+ + + Advance Directives Patient has advance care planning documents on file. For more information, please contact:[facility] [place] [address]
--- OUTSIDE RECORDS SUMMARY | 2018-11-22 09:52 | XMS ---
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 11/12/2018-Rashawn SPRAGUE PHONE: [phone] Ildefonso Pillai MD Primary Care Current PHONE: Unknown orgenny Case or [employer] Current PHONE: Unknown Jemal PILLAI Current PHONE: Unknown Lara has no Care Guidelines for this patient. Care History Medical/Surgical 2018 [facility] - Patient is currently established with [facility]. If patient is seen in the ED during business hours. Please contact [facility] at [facility]. Care Recommendation: This patient has had 5 or more Emergency Department visits in the last 12 months.\T\nbsp; Patient requires education on the scope and purpose of the ED as an acute care provider not a Primary Care Provider and should not be utilized for chronic conditions.\T\nbsp; These are guidelines and the provider should exercise clinical judgment when providing care. E.D. VISIT COUNT (12 MO.) 3 [facility]. TOTAL 3 NOTE: Visits indicate total known visits. 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
[2018-11-22] MEDS ORDERED: FLECAINIDE ACET50 MG PO (12:14)
--- NOTE | 2018-11-22 16:33 | EKG ---
[facility] [address] [place] [address] Signed Sinus tachycardia with fusion complexes Inferior infarct (cited on or before 12-OCT-2018) Abnormal ECG When compared with ECG of 11-NOV-2018 16:55, fusion complexes are now present T wave inversion no longer evident in Inferior leads Confirmed by THALIA SMITH DO ([id number]) on 11/22/2018 4:33:50 PM Electronically Signed By: THALIA SMITH DO 11/22/18 1633 PATIENT NAME: KITA POTTER Electrocardiogram DATE OF : 50 PHYSICIAN: THALIA SMITH DO REPORT #: [id number] REPORT IS CONFIDENTIAL AND NOT TO BE RELEASED WITHOUT AUTHORIZATION
--- NOTE | 2018-11-22 16:34 | EKG ---
[facility] [address] [facility] [place] [address] Signed Sinus rhythm with occasional premature ventricular complexes Inferior infarct (cited on or before 12-OCT-2018) Abnormal ECG When compared with ECG of 22-NOV-2018 09:56, (Unconfirmed) fusion complexes are no longer present premature ventricular complexes are now present Vent. rate has decreased BY 74 BPM Serial changes of Inferior infarct present Confirmed by THALIA SMITH DO ([id number]) on 11/22/2018 4:33:56 PM Electronically Signed By: THALIA SMITH DO 11/22/18 1634 PATIENT NAME: KITA POTTER Electrocardiogram DATE OF : 50 PHYSICIAN: THALIA SMITH DO REPORT #: [id number] REPORT IS CONFIDENTIAL AND NOT TO BE RELEASED WITHOUT AUTHORIZATION
== END 2018-11-22 12:56 | disposition home or self-care (01) ==
LOC: ED 09:48
DX: I48.91 Unspecified atrial fibrillation (principal); E03.9 Hypothyroidism, unspecified; Z87.891 Personal history of nicotine dependence; Z79.899 Other long term (current) drug therapy
CPT/HCPCS: 36415; 80053; 83735; 84484; 85025; 93005; 93010; 96374; 99285-25

== ENCOUNTER 2018-12-07 07:57 | Emergency (ER) | payer MEDICARE, OTHER ==
[~2018-12-07] VITALS: Ht 185.4 cm; Wt 98.9 kg
--- OUTSIDE RECORDS SUMMARY | ~2018-12-07 | XMS | Encounter Summary ---
Demographics + + + | Address | [address] | | | [place] [address] | + + + | Home Phone | | + + + | Preferred Language | Unknown | + + + | Marital Status | | + + + | Catholic Affiliation | Unknown | + + + | Race | Unknown | + + + | Ethnic Group | Unknown | + + + Author + + + | Author | [facility] | | | and [place] | + + + | Organization | [facility] | | | and [place] | + + + | Address | Unknown | + + + | Phone | Unavailable | + + + Support + + +---------+ + | Name | Relationship | Address | Phone | + + +---------+ + | Argenis Schmid | ECON | Unknown | | + + +---------+ + Care Team Providers + +------+ + | Care Bit Setter Name | Role | Phone | + +------+ + | Alisson Perry MD | PCP | | + +------+ + Reason for Visit + + + | Reason | Comments | + + + | Follow-up | Discuss symptoms | + + + Encounter Details +--------+---------+ + + + | Date | Type | Department | Care Team | Description | +--------+---------+ + + + | 09/27/ | Office | [facility] [place] | Darlyn Rodriguez | Degenerative disc | | 2019 | Visit | NEUROSURGERY [address] | [address] | disease, lumbar | | | | [address] | [place], | (Primary Dx); Lumbar | | | | [place], [place] | [place] [address] | radiculopathy | | | | [address] | [phone] | | | | | [phone] | | | +--------+---------+ + + + Social History + + + +--------+ + | Tobacco Use | Types | Packs/Day | Years | Date | | | | | Used | | + + + +--------+ + | Former Smoker | Cigarettes | 0.5 | 10 | 08/07/1970 - | | | | | | 08/07/1980 | + + + +--------+ + + +---+---+---+ | Smokeless Tobacco: | | | | | Never Used | | | | + +---+---+---+ + + +---------+ + | Alcohol Use | Drinks/We | oz/Week | Comments | | | ek | | | + + +---------+ + | No | 0 | 0.0 | | | | Standard | | | | | drinks or | | | | | | | | | | equivalen | | | | | t | | | + + +---------+ + + + + | Sex Assigned at | Date Recorded | | | | + + + | Not on file | | + + + + + + + | Job Start Date | Occupation | Industry | + + + + | Not on file | Not on file | Not on file | + + + + + + + + | Travel History | Travel Start | Travel End | + + + + + + | No recent travel history available. | + + documented as of this encounter Last Filed Vital Signs + + + + | Vital Sign | Reading | Time Taken | + + + + | Blood Pressure | 116/74 | 09/27/2018 1247 PST | + + + + | Pulse | 81 | 09/27/20181246 PST | + + + + | Temperature | - | - | + + + + | Respiratory Rate | - | - | + + + + | Oxygen Saturation | - | - | + + + + | Inhaled Oxygen | - | - | | Concentration | | | + + + + | Weight | 99.5 kg (219 lb 6.4 | 09/27/20181246 PST | | | oz) | | + + + + | Height | 185.4 cm (6' 1") | 09/27/2018 1247 PST | + + + + | Body Mass Index | 28.95 | 09/27/2018 1247 PST | + + + + documented in this encounter Patient Instructions Patient Instructions Francis Sherwood, Hog Grader - 09/27/2018 12:30 PSTIt was a pleasu re to see you today. Here are some notes to help you remember what we discussed in your off ice visit today. If you do choose back surgery it would look something like this: -1-3 days in the hospital, spend the first month lifting no more than 5lbs, no bending, lif ting above your head, or twisting. -We will want you to be up and walking very frequently. For the first 10-14 days we want y ou to be up every 45 minutes for 2-3 minutes in your house. After 10-14 days when you are f eeling comfortable you can walk outside with a walking partner. -You would wear a back brace for at least the first month. -No intercourse for the first month. -No driving for the first few weeks to 1 month as long as you have your strength back and a re not taking pain medication then you could drive. -You would need help with things like tying your shoes, getting socks on and what not to pr event you from bending over for that first month at least. -Recovery time would be 6-12 months depending on bone fusion and healing. You will have dino e waxing and waning of symptoms. The pain will vary in intensity and vary from day to day. As time moves on the frequency and intensity of the pain will slowly go away. documented in this encounter Progress Notes Darlyn Rodriguez PA-C - 09/27/2018 1230 PST Marilu Rodriguez PA-C [address] [place] [address] PHONE: FAX: NEUROSURGERY FOLLOW-UP CHIEF COMPLAINT: Chief Complaint Patient presents with Follow-up Discuss symptoms HISTORY OF PRESENT ILLNESS: The patient is a 67 y.o. male that presents for a follow up to discuss his symptoms. Patient returns and overall is doing well. The patient has opted out of surgery in the past and has continued to do conservative treatments. Patient was last seen by with the complaints of low back pain and right leg p ain on 06/12/18. It was recommended that he try injections. The patient did have a right L5- S1 TFESI on 07/05/2019. The patient states the injection gave him great relief. He reports a 90% relief of his back and right leg symptoms. He rates his average pain level a 1/10. The patient describes he has more back pain than le g pain. His right leg is worse than his left leg. The patient has been able to do the things he wants to do and causes no additional pain due to the injection. His current radicular s ymptoms appear to be in an L4 dermatone. He denies loss of bowel or bladder problems or saddle anesthesia. CURRENT MEDICATIONS: Current Outpatient Prescriptions Medication Sig Dispense Refill ALOE VERA JUICE PO Take by mouth. Drinks 4oz glass every am levothyroxine (SYNTHROID, LEVOTHROID) 137 MCG tablet take 1 tablet by mouth once daily 1 No current facility-administered medications for this visit. ALLERGIES: No Known Allergies SOCIAL HISTORY: The patient reports that he quit smoking about 38 years ago. His smoking use included Ciga rettes. He started smoking about 48 years ago. He has a 5.00 pack-year smoking history. He h as never used smokeless tobacco. He reports that he does not drink alcohol or use drugs. REVIEW OF SYSTEMS: GENERALLY: No fever, no night sweats, no anemia, no fatigue, no recent profound weight ch anges. EYES: + eye problems, no impaired sight, no use of corrective lenses, no eye injury, no do uble vision, no transient blindness. EARS, NOSE, AND THROAT: No changes in taste or smell, no hearing difficulty, no ringing in the ears, no ear drainage, no ear injury, no dizziness, no voice changes, no difficulty swa llowing, no significant snoring, no sleep apnea/CPAP, no sinus problems, no major dental wor k. NEUROLOGICALLY: Please see the review of systems discussed above in the history of present illness. PSYCHIATRIC: No depression, no difficulty sleeping, no anxiety, no bipolar disorder. CARDIOVASCULAR: No heart attacks, no heart murmur, no heart fluttering, no chest pain, no ankle swelling. LUNG DISEASE: No shortness of breath, no cough, no tuberculosis, no bloody cough, no asthm a, no emphysema/COPD. GASTROINTESTINAL: No bowel disease, no nausea or vomiting, no rectal bleeding, no constipa tion, no fecal stool incontinence, no liver/gallbladder disease, no abdominal pain, no ulcer s. KIDNEY DISEASE: No urinary frequency, no painful or difficult urination, no urinary incont inence, no bladder problems, no impotence. ENDOCRINE: No diabetes, + thyroid disease, no osteopenia or osteoporosis, no breast draina ge. SKIN: No breast lumps, no skin disease or skin changes, no rashes/itches. HEMATOLOGIC/LYMPHATIC: No enlarged lymph nodes, no easy or unusual bleeding, no personal h istory of cancer. RHEUMATOLOGIC: No joint pain/arthritis, no rheumatoid arthritis. INTERIM PHYSICAL EXAMINATION: Blood pressure 116/74, pulse 81, height 1.854 m (6' 1"), weight 99.5 kg (219 lb 6.4 oz). Maxwell dy mass index is 28.95 kg/m. GENERAL: Jamel Schmid is in no acute distress with unlabored respirations. The p atient does not appear uncomfortable throughout the exam today. HEENT: Head: Normocephalic/atraumatic with no areas of recent trauma. Eyes: Normal sclerae without icterus. Ears: No drainage or tenderness. Nasopharnyx: Clear without drainage. Oropharnyx: Clear without erythema. NECK (ANTERIOR): Supple and without palpable masses. CHEST: Clear to ausculation without crackles or wheeze. HEART: Regular rate and rhythm without murmurs. ABDOMEN: Soft, non-tender, non-distended, and without palpable masses. The patient is not o bese. SPINE: The lumbar spine shows there is no tenderness in the midline levels. To palpation, there is no significant myofascial tenderness. There is no significant pain to provacative testing of the SI joint. There is mild deformity of the spine noted. EXTREMITIES: No cyanosis, clubbing, or edema. Distal pulses are palpable. NEUROLOGICAL EXAM: MENTAL STATUS: The patient is awake, alert, and oriented. He follows simple and complex commands. His speech is fluent, he comprehends speech well, and he repeats well. He has no apparent deficits with short or prison memory. CRANIAL NERVES: II: Acuity is intact. Finch are full to confrontation. III, IV, : The pupils are reactive. Extraocular movements are intact. No ptosis is note d. V: Facial sensation is intact and symmetric. VII: Facial movements are symmetric. VIII: Hearing is intact bilaterally. IX, X: The uvula and palate move appropriately. XI: Shrug is equal bilaterally. XII: Tongue protrusion is midline. MOTOR EXAM: (5 IS NORMAL) * Indicates pain limited MUSCLE/ MOVEMENT: RIGHT LEFT Hip Flexion 5 5 Hip Extension 5 5 Knee Flexion 5 5 Knee Extension 5 5 Dorsiflexion 5 5 Extensor Hallicus Longus 5 5 Plantarflexion 5 5 SENSORY EXAM: Sensory exam shows no diminished sensation to light touch or pain throughout the upper and lower extremities. REFLEXES: (2 OR 2+ IS NORMAL) REFLEX: RIGHT LEFT PATELLAR 2+ 2+ ACHILLES 2+ 2+ VERDUGO'S ABSENT ABSENT PLANTAR DOWNGOING DOWNGOING GAIT: Gait is steady. He is able to heel and tip toe walk. PERIPHERAL NERVE/MISC: Straight leg raise is negative bilaterally. Raymond's test of the hips is negative bilaterally. TEST AND RADIOGRAPHIC REVIEW: The patient's imaging was reviewed in detail with the patient today during the visit. The Lumbar MRI from 06/30/2017 shows DDD and spondylosis causing NFN at multiple levels with mil d scoliosis and a right lateral listhesis at L3 on L4. Lumbar x-rays from 09/13/17 show no major instability. Pt has large bridging anterior osteop hytes at L4-5 and L2-3 with AP view showing scoliosis. ASSESSMENT: Outpatient Morphine Equivalent Daily Dose (MEDD) None Encounter Diagnoses Name Primary? Lumbar radiculopathy Degenerative disc disease, lumbar Yes Past Medical History: Diagnosis Date Allergic rhinitis Cardiac dysrhythmia Cataracts, bilateral Chronic back pain Coronary artery disease Dysphagia swallowing pills GERD without esophagitis Hearing loss Heartburn History of alcohol use History of drug use Marijuana Hyperlipidemia Hypothyroidism Impaired fasting glucose Palpitations if he stands up to fast Peyronie's disease Prostatic hyperplasia, benign localized PVC's (premature ventricular contractions) Radiculopathy, lumbar region Urinary frequency at night PLAN: Overall, the patient is doing fairly well. 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 The patient is improving with conservative care. We had a lengthy discussion with the patient about his options for care including surgical and non-surgical options. He would like to continue under the care of Dr. Chris for con servative care. He is considering PT and will call back if he would like to pursue this. The patient will like to follow up in one year. I, Darlyn Rodriguez PA-C, personally performed the services described in this document ation, as scribed by RHONDA Barlow in my presence, and it is both accurate and complete . Marilu Rodriguez PA-C 09/27/18 ELECTRONICALLY SIGNED BY: Marilu Rodriguez PA-C, 09/27/2018 13:29 documented in th is encounter Plan of Treatment +--------+---------+ + + + | Date | Type | Specialty | Care Team | Description | +--------+---------+ + + + | 01/29/ | Office | Cardiology | Chai Maggiecaterina, | | | 2018 | Visit | | MD Mercedes Moreno | | | | | | [place], | | | | | | [place] [address] | | | | | | [phone] | | | | | | | | +--------+---------+ + + + | 04/01/ | Office | Physical Medicine | Michael Talley, | | | 2018 | Visit | and Rehabilitation | [address] | | | | | | [address] [place] | | | | | | [place] [address] | | | | | | [phone] | | | | | | | | +--------+---------+ + + + | 09/26/ | Office | Neurosurgery | Darlyn Rodriguez | | | 2019 | Visit | | [address] | | | | | | [place], | | | | | | [place] [address] | | | | | | [phone] | | | | | | | | +--------+---------+ + + + documented as of this encounter Visit Diagnoses + + | Diagnosis | + + | Degenerative disc disease, lumbar - Primary Degeneration of lumbar or lumbosacral | | intervertebral disc | + + | Lumbar radiculopathy Thoracic or lumbosacral neuritis or radiculitis, unspecified | + + documented in this encounter
--- OUTSIDE RECORDS SUMMARY | ~2018-12-07 | XMS | Encounter Summary ---
Demographics + + + | Address | [address] | | | [place] [address] | + + + | Home Phone | | + + + | Preferred Language | Unknown | + + + | Marital Status | | + + + | Yarsani Affiliation | Unknown | + + + | Race | Unknown | + + + | Ethnic Group | Unknown | + + + Author + + + | Author | [email or web address] | + + + | Organization | [facility] [employer] [facility] | + + + | Address | Unknown | + + + | Phone | Unavailable | + + + Support + + +---------+ + | Name | Relationship | Address | Phone | + + +---------+ + | Argenis Schmid | ECON | Unknown | | + + +---------+ + Care Team Providers + +------+ + | Care Gauntlet Pairer Name | Role | Phone | + +------+ + | Alisson Perry MD | PCP | | + +------+ + Reason for Visit +--------+ + | Reason | Comments | +--------+ + | Other | [facility] labs drawn 11/11/18 | +--------+ + Encounter Details +--------+ + + + + | Date | Type | Department | Care Team | Description | +--------+ + + + + | 11/20/ | Documentati | GIULIA Romano | Deyanira Smith, | Other ([facility] | | 2019 | on Only | Cardiology Angela | DAREK merino drawn 11/11/18 ) | | | | [address] | | | | | | [place] | | | | | | [address] | | | | | | [phone] | | | +--------+ + + + + Social History + +-------+ +--------+ + | Tobacco Use | Types | Packs/Day | Years | Date | | | | | Used | | + +-------+ +--------+ + | Former Smoker | | 0.5 | | Quit: 1981 | + +-------+ +--------+ + + +---+---+---+ | Smokeless Tobacco: | | | | | Former User | | | | + +---+---+---+ + + +---------+ + | Alcohol Use | Drinks/We | oz/Week | Comments | | | ek | | | + + +---------+ + | No | | | former alcoholic, 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 30 | + + +---------+ + + + + | Sex Assigned at | Date Recorded | | | | + + + | Not on file | | + + + as of this encounter Plan of Treatment +--------+ + + + + | Date | Type | Specialty | Care Team | Description | +--------+ + + + + | 12/19/ | Initial | Cardiology | Raymond More | | | 2019 | consult | | MD [address] | | | | | | [address] | | | | | | [place] [address] | | | | | | [phone] | | | | | | | | +--------+ + + + + | 01/21/ | Office | Cardiology | [place] | | | 2019 | Visit | | [address] | | | | | | [address] | | | | | | [place] [address] | | | | | | [phone] | | | | | | | | +--------+ + + + + as of this encounter Visit Diagnoses Not on filein this encounter"
--- OUTSIDE RECORDS SUMMARY | ~2018-12-07 | XMS | Encounter Summary ---
Demographics + + + | Address | [address] | | | [place] [address] | + + + | Home Phone | | + + + | Preferred Language | Unknown | + + + | Marital Status | | + + + | Mandaen Affiliation | Unknown | + + + | Race | Unknown | + + + | Ethnic Group | Unknown | + + + Author + + + | Author | [facility] | + + + | Organization | [facility] | + + + | Address | Unknown | + + + | Phone | Unavailable | + + + Support + + +---------+ + | Name | Relationship | Address | Phone | + + +---------+ + | Argenis Schmid | ECON | Unknown | | + + +---------+ + Care Team Providers + +------+ + | Care Newspaper Illustrator Name | Role | Phone | + +------+ + | Alisson Perry MD | PCP | | + +------+ + Reason for Visit + + + | Reason | Comments | + + + | Atrial Fibrillation | | + + + Encounter Details +--------+ + + + + | Date | Type | Department | Care Team | Description | +--------+ + + + + | 11/22/ | Telephone | [facility] Romano | Livan Astorga, | Atrial Fibrillation | | 2019 | | Cardiology Angela | [address] | | | | | [address] | [place], | | | | | [place], [place] | [place] [address] | | | | | [address] | [phone] | | | | | [phone] | (Fax) | | +--------+ + + + + [...] 2019 | consult | | MD [address] | | | | | | [address] | | | | | | [place] [address] | | | | | | [phone] | | | | | | | | +--------+ + + + + | 01/21/ | Office | Cardiology | AlekelizabethAga | | | 2019 | Visit | | [address] | | | | | | [address] | | | | | | [place] [address] | | | | | | [phone] | | | | | | | | +--------+ + + + + as of this encounter Visit Diagnoses Not on filein this encounter"
--- OUTSIDE RECORDS SUMMARY | ~2018-12-07 | XMS | Encounter Summary ---
Demographics + + + | Address | [address] | | | [place] [address] | + + + | Home Phone | | + + + | Preferred Language | Unknown | + + + | Marital Status | | + + + | Restorationist Affiliation | Unknown | + + + | Race | Unknown | + + + | Ethnic Group | Unknown | + + + Author + + + | Author | [facility] [employer] | + + + | Organization | [facility] [employer] [facility] | + + + | Address | Unknown | + + + | Phone | Unavailable | + + + Support + + +---------+ + | Name | Relationship | Address | Phone | + + +---------+ + | Argenis Schmid | ECON | Unknown | | + + +---------+ + Care Team Providers + +------+ + | Care Hadoop Consultant Name | Role | Phone | + +------+ + | Alisson Perry MD | PCP | | + +------+ + Encounter Details +--------+ + + + + | Date | Type | Department | Care Team | Description | +--------+ + + + + | 10/18/ | Documentati | [facility] [place] | Marianne Reed, | | | 2018 | on Only | Sin Miller | [address] | | | | | [address] | [address], | | | | | [facility] [place] | [place] [id number] | | | | | [address] | [phone] | | | | | [phone] | | | +--------+ + + + [...] | 2019 | consult | | MD [address] | | | | | | [address] | | | | | | [place] [id number] | | | | | | [phone] | | | | | | | | +--------+ + + + + | 01/21/ | Office | Cardiology | Aga Kelley | | | 2019 | Visit | | [address] | | | | | | [address] | | | | | | [place] [id number] | | | | | | [phone] | | | | | | | | +--------+ + + + + as of this encounter Visit Diagnoses Not on filein this encounter"
--- OUTSIDE RECORDS SUMMARY | ~2018-12-07 | XMS | Clinical Summary ---
Demographics + + + | Address | [address] | | | [place] [address] | + + + | Home Phone | | + + + | Preferred Language | Unknown | + + + | Marital Status | | + + + | Islam Affiliation | Unknown | + + + | Race | Unknown | + + + | Ethnic Group | Unknown | + + + Author + + + | Author | [facility] | + + + | Organization | [facility] | + + + | Address | Unknown | + + + | Phone | Unavailable | + + + Support + + +---------+ + | Name | Relationship | Address | Phone | + + +---------+ + | Argenis Schmid | ECON | Unknown | | + + +---------+ + Care Team Providers + +------+ + | Care Ear Pull Machine Operator Name | Role | Phone | + +------+ + | Alisson Perry MD | PP | | + +------+ + Allergies Not on File Current Medications + + +-------+---------+------+------+-------+ | Prescription | Sig. | Disp. | Refills | Star | End | Statu | | | | | | t | Date | s | | | | | | Date | | | + + +-------+---------+------+------+-------+ | levothyroxine | Take 137 mcg by | | | | | Activ | | (SYNTHROID) 137 MCG | mouth every morning | | | | | e | | tablet | before breakfast. | | | | | | + + +-------+---------+------+------+-------+ | diltiazem | Take 180 mg by mouth | | | | | Activ | | (CARDIZEM CD) 180 MG | daily. | | | | | e | | 24 hr capsule | | | | | | | + + +-------+---------+------+------+-------+ | rivaroxaban | Take 20 mg by mouth | | | | | Activ | | (XARELTO) 20 mg | daily with dinner. | | | | | e | | tablet | | | | | | | + + +-------+---------+------+------+-------+ Active Problems + + + | Problem | Noted Date | + + + | Atrial fibrillation (HCC) | 10/12/2018 | + + + + + | Overview: Paroxysmal, [id number] VASc 2 | + + + +---+ | Frequent PVCs | | + +---+ | Hyperlipidemia | | + +---+ | Hypothyroidism | | + +---+ Encounters +--------+ + + + + | Date | Type | Specialty | Care Team | Description | +--------+ + + + + | 12/03/ | Documentati | | Livan Astorga, | Cardiac Event | | 2018 | on Only | | Shayla Moran, | Monitor (30 day) | | | | | [place] | | +--------+ + + + + | 11/22/ | Telephone | | Livan Astorga, | Atrial Fibrillation | | 2018 | | | | | +--------+ + + + + | 11/21/ | Documentati | | Deyanira Smith, | Other ([facility] | | 2018 | on Only | | [place] | labs 11/11/18) | +--------+ + + + + | 11/20/ | Documentati | | Deyanira Smith, | Other ([facility] | | 2018 | on Only | | [place] | labs drawn 11/11/18 ) | +--------+ + + + + | 11/19/ | Initial | | Livan Astorga, | Paroxysmal atrial | | 2019 | consult | | MD | fibrillation (HCC) | | | | | | (Primary Dx); | | | | | | Frequent PVCs; | | | | | | Hyperlipidemia, | | | | | | unspecified | | | | [...] troponin | +--------+ + + + + | 10/18/ | Documentati | | Marianne Reed, | | | 2018 | on Only | | MD | | +--------+ + + + + from Last 3 Months Family History + + +------+ + | Medical History | Relation | Name | Comments | + + +------+ + | Coronary Artery | Brother | | | | Disease | | | | + + +------+ + | Heart attack | Brother | | with cardiac arrest, Stent | + + +------+ + | Murmur | Daughter | | childhood | + + +------+ + | Colon cancer | Father | | | + + +------+ + | Asthma | Mother | | | + + +------+ + | Congestive Heart | Mother | | | | Failure | | | | + + +------+ + | Diabetes | Mother | | | + + +------+ + | Non-Hodgkin's | Mother | | | | lymphoma | | | | + + +------+ + | Peripheral Artery | Mother | | | | Disease | | | | + + +------+ + + +------+ + + | Relation | Name | Status | Comments | + +------+ + + | Brother | | Alive | | + +------+ + + | Daughter | | Alive | | + +------+ + + | Daughter | | Alive | | + +------+ + + | Father | | | failure to thrive | | | | (Age | | | | | 89) | | + +------+ + + | Maternal Grandfather | | | | + +------+ + + | Maternal Grandmother | | | | + +------+ + + | Mother | | | CHF | | | | (Age | | | | | 84) | | + +------+ + + | Paternal Grandfather | | | | + +------+ + + | Paternal Grandmother | | | | + +------+ + + | Sister | | Alive | | + +------+ + + | Sister | | Alive | | + +------+ + + | Sister | | Alive | | + +------+ + + | Sister | | Alive | | + +------+ + + | Son | | Alive | | + +------+ + + Social History + +-------+ +--------+ [...] on file | | + + + Last Filed Vital Signs + + + [...] AM PDT | + + + + Plan of Treatment +--------+ + + + + | Date | Type | Specialty | Care Team | Description | +--------+ + + + + | 12/19/ | Initial | | Raymond More | | | 2019 | consult | | [address] | | | | | | [address] | | | | | | [place] [address] | | | | | | [phone] | | | | | | | | +--------+ + + + + | 01/21/ | Office | | Aga Kelley | | | 2019 | Visit | | [address] | | | | | | [address] | | | | | | [place] [address] | | | | | | [phone] | | | | | | | [...] | | + + + + + Procedures + +--------+ + + + | [...] section. | + +--------+ + + + from Last 3 Months Results EKG STANDARD 12 LEAD (11/19/2018 9:14 AM) + + + + + | Component | Value | Ref Range | Performed At | + + + + + | Ventricular Rate | 61 | BPM | [facility] | + + + + + | Atrial Rate | 61 | BPM | [facility] | + + + [...] + + + + | Calculated P [place] | 72 | degrees | [facility] | + + + + + | Calculated R [place] | 68 | degrees | [facility] | + + + + + | Calculated T [place] | 71 | degrees | [facility] | + + + + + | Diagnosis | Sinus rhythm with | | [facility] | | | Premature atrial | | | | | complexesOtherwise | | | | | normal ECGNo previous | | | | | ECGs availablePlease | | | | | refer to Providers | | | | | office visit note for | | | | | Providers | | | | | Interpretation.Confirmed | | | | | by [facility] Read Only, | | | | | [facility] [address] ([id number]), | | | | | editor continuity and script Dung Dominguez | | | | | ([id number]) on 11/19/2018 | | | | | 9:17:15 AM | | | + + + + + + + + + + | Performing | Address | City/State/Zipcode | Phone Number | | Organization | | | | + + + + + | [facility] | [address] | [place] [address] | | + + + + + from Last 3 Months Insurance + +--------+ +------+-------+ + | Payer | Benefi | Subscriber | Type | Phone | Address | | | t Plan | ID | | | | | | / | | | | | | | Group | | | | | + +--------+ +------+-------+ + | MEDICARE | MEDICA | [id number] | | | [address] | | | RE | | | | [place] [address] | | | IP-OP | | | | | + +--------+ +------+-------+ + | [employer] [place] | MUTUAL | [id number] | | | | | | [place] | | | | | | | [place] | | | | | + +--------+ [...] | Self [birth year] Home: | [address] | | | al/Fam | | 1951 | [phone] | [place], | | | gael | | | [address] | [place] [address] | + +--------+ +--------+ + +
--- OUTSIDE RECORDS SUMMARY | ~2018-12-07 | XMS | Clinical Summary ---
Demographics + + + | Address | [address] | | | [place] [address] | + + + | Home Phone | | + + + | Preferred Language | Unknown | + + + | Marital Status | Single | + + + | Pentecostalism Affiliation | PRO | + + + [...] [place] | | | [place] | | [address] | | + + + + + Care Team Providers + +------+ + | Care Diaper Machine Tender Name | Role | Phone | + +------+ + PP | Unavailable | + +------+ + Source Comments [facility] is fully live on both [facility] and [facility] Allergies No Known Allergies Current Medications Not [...]
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
--- OUTSIDE RECORDS SUMMARY | ~2018-12-07 | XMS | Encounter Summary ---
Demographics + + + | Address | [address] | | | [place] [address] | + + + | Home Phone | | + + + | Preferred Language | Unknown | + + + | Marital Status | | + + + | Mosque Affiliation | Unknown | + + + | Race | Unknown | + + + | Ethnic Group | Unknown | + + + Author + + + | Author | Rajesh [facility] | + + + | Organization | [facility] [employer] [facility] | + + + | Address | Unknown | + + + | Phone | Unavailable | + + + Support + + +---------+ + | Name | Relationship | Address | Phone | + + +---------+ + | Argenis Schmid | ECON | Unknown | | + + +---------+ + Care Team Providers + +------+ + | Care Linen Clerk Name | Role | Phone | + +------+ + | Alisson Perry MD | PCP | | + +------+ + Reason for Visit +--------+ + | Reason | Comments | +--------+ + | Other | [facility] labs 11/11/18 | +--------+ + Encounter Details +--------+ + + + + | Date | Type | Department | Care Team | Description | +--------+ + + + + | 11/21/ | Documentati | [facility] Romano | Deyanira Smith, | Other ([facility] | | 2019 | on Only | Cardiology Angela | DAREK | labs 11/11/18) | | | | [address] | | | | | | [place], [place] | | | | | | [address] | | | | | | [phone] | | | +--------+ + + + [...] [address]HE[address] | | | | | | [place] [address] | | | | | | [phone] | | | | | | | | +--------+ + + + + | 01/21/ | Office | Cardiology | Aga Kelley | | | 2019 | Visit | | [address] | | | | | | [address] | | | | | | [place] [address] | | | | | | [phone] | | | | | | | | +--------+ + + + + as of this encounter Visit Diagnoses Not on filein this encounter"
--- OUTSIDE RECORDS SUMMARY | ~2018-12-07 | XMS | Encounter Summary ---
Demographics + + + | Address | [address] | | | [place] [address] | + + + | Home Phone | | + + + | Preferred Language | Unknown | + + + | Marital Status | | + + + | Quaker Affiliation | Unknown | + + + | Race | Unknown | + + + | Ethnic Group | Unknown | + + + Author + + + | Author | Rajesh Thumb | + + + | Organization | [facility] [employer] [facility] | + + + | Address | Unknown | + + + | Phone | Unavailable | + + + Support + + +---------+ + | Name | Relationship | Address | Phone | + + +---------+ + | Argenis Schmid | ECON | Unknown | | + + +---------+ + Care Team Providers + +------+ + | Care Yard Worker Name | Role | Phone | [...] [address] | | | | | | [place], [place] | | | | | | [address] | | | | | | [phone] | | | +--------+ + + + [...] | | | | | | [place] [address] | | | | | | [phone] | | | | | | | | +--------+ + + + + | 01/21/ | Office | Cardiology | Aga Kelley | | | 2019 | Visit | | [address] | | | | | | [address] | | | | | | [place] [address] | | | | | | [phone] | | | | | | | | +--------+ + + + + as of this encounter Visit Diagnoses Not on filein this encounter"
--- OUTSIDE RECORDS SUMMARY | ~2018-12-07 | XMS | Encounter Summary ---
Demographics + + + | Address | [address] | | | [place] [address] | + + + | Home Phone | | + + + | Preferred Language | Unknown | + + + | Marital Status | | + + + | Advent Affiliation | Unknown | + + + | Race | Unknown | + + + | Ethnic Group | Unknown | + + + Author + + + | Author | [facility] [employer] | + + + | Organization | [facility] [employer] [facility] | + + + | Address | Unknown | + + + | Phone | Unavailable | + + + Support + + +---------+ + | Name | Relationship | Address | Phone | + + +---------+ + | Argenis Schmid | ECON | Unknown | | + + +---------+ + Care Team Providers + +------+ + | Care Entry Level Assistant Manager Name | Role | Phone | + [...] | | | | | fibrillation | Stuart Sow | [address] | | | | | (HCC) SOB | [address] | [address] | | | | | (shortness | [place] | [place], [place] | | | | | of breath) | [address] | [address] | | | | | on exertion | Phone: | Phone: | | | | | Narinder | [phone] | [phone] | | | | | coronary | Fax: | Fax: | | | | | artery | [phone] | [phone] | | | | | calcium | [...] | Specialty | Sleep | Diagnoses | [place], | Lab, [facility] | | | Services | Medicine | Paroxysmal | Livan Thomson, | [facility] | | | Required | | atrial | MD [address] | Sleep | | | | | fibrillation | [address] Sow | Disorders | | | | | ([facility]) | [address] | [facility] | | | | | Obstructive | [place], [place] | HOSPITAL | | | | | sleep apnea | [address] | [address] | | | | | syndrome in | Phone: | [address] | | | | | adult SOB | [phone] | [place], [place] | | | | | (shortness | Fax: | [address] | | | | | of breath) | [phone] | Phone: | | | | | on exertion | | [phone] | | | | | | | Fax: | | | | | | | [phone] | + + + + + + [...] | DR | | | | | ([facility]) | [address] | [place] | | | | | Frequent | [place] | [address] | | | | | PVCs | [address] | Phone: | | | | | | Phone: | [phone] | | | | | | [phone] | Fax: | | | | | | Fax: | [phone] | | | | | | [phone] | | + + + + + [...] Dr Oshe[address] | | | | | ([facility]) | [place], | [place] | | | | | Procedures | [place] [address] | [address] Phone: | | | | | Consult | Phone: | [phone] | | | | | | [phone] | Fax: | | | | | | Fax: | [phone] | | | | | | [phone] | | +--------+--------+ + + + + Encounter Details +--------+ + + + + | Date | Type | Department | Care Team | Description | +--------+ + + + + | 11/19/ | Initial | [facility] | Livan Astorga, | Paroxysmal atrial | | 2019 | consult | Cardiology Garo | [address] | fibrillation ([facility]) | | | | [address] | [place], Shayna (Primary Dx); | | | | [place], [place] | [place] [address] | Frequent PVCs; | | | | [address] | [phone] | Hyperlipidemia, | | | | [phone] | | unspecified | | | | [...] + + + in this encounter Progress Livna Ta MD - 11/19/2018 9:15 AM PDTFormatting [...] cardiology evaluati on, after being admitted to [facility] 10/12-04[facility]25 for paroxysmal atrial fibrillati on. He [...] second episode in November, was seen at [facility] ER 11/11/18, and a repeat troponin level [...] been followed by Gordon Paula MD in [place] for frequent PVCs, h ad become asymptomatic [...] Diagnosis Date Atrial fibrillation (HCC) 10/12/2018 Paroxysmal, [id number] VASc 2 BPH (benign prostatic hyperplasia) DDD [...] [address] | | | | | | [place] [address] | | | | | | [phone] | | | | | | | | +--------+ + + + + | 01/21/ | Office | Cardiology | Aga Kelley | | | 2019 | Visit | | [address] | | | | | | [address] | | | | | | [place] [address] | | | | | | [phone] | | | | | | | [...] + + + in this encounter Results [facility] STANDARD 12 LEAD (11/19/2018 9:14 AM) + [...] + + + + | Calculated P [place] | 72 | degrees | [facility] | + + + + + | Calculated R [place] | 68 | degrees | [facility] | + + + + + | Calculated T [place] | 71 | degrees | [facility] | + + + + + | Diagnosis | Sinus rhythm with | | [facility] | | | Premature atrial | | | | | complexesOtherwise | | | | | normal ECGNo previous | | | | | ECGs availablePlease | | | | | refer to Providers | | | | | office visit note for | | | | | Providers | | | | | Interpretation.Confirmed | | | | | by [facility] Read Only, | | | | | [facility] [place] ([id number]), | | | | | news video editor Dung Dominguez | | | | | ([id number]) on 11/19/2018 | | | | | 9:17:15 AM | | | + + + + + + + + + + | Performing | Address | City/State/Zipcode | Phone Number | | Organization | | | | + + + + + | [facility] | [address] | [place] [address] | | + + + + + [...]
--- OUTSIDE RECORDS SUMMARY | ~2018-12-07 | XMS | Encounter Summary ---
Demographics + + + | Address | [address] | | | [place] [address] | + + + | Home Phone | | + + + | Preferred Language | Unknown | + + + | Marital Status | | + + + | Pentecostalism Affiliation | Unknown | + + + | Race | Unknown | + + + | Ethnic Group | Unknown | + + + Author + + + | Author | [facility] [employer] | + + + | Organization | [facility] [employer] | + + + | Address | Unknown | + + + | Phone | Unavailable | + + + Support + + +---------+ + | Name | Relationship | Address | Phone | + + +---------+ + | Argenis Schmid | ECON | Unknown | | + + +---------+ + Care Team Providers + +------+ + | Care Air Shovel Operator Name | Role | Phone | + +------+ + | Alisson Perry MD | PCP | | + +------+ + Encounter Details +--------+ + + + + | Date | Type | Department | Care Team | Description | +--------+ + + + + | 10/18/ | Documentati | [facility] | Marianne Reed, | | | 2018 | on Only | Sin Miller | [address] | | | | | [address] | Dr Foreman, | | | | | [facility] [place] | [place] [address] | | | | | [address] | [phone] | | | | | [phone] | | | +--------+ + + + [...] | | | | | | [place] [address] | | | | | | [phone] | | | | | | | | +--------+ + + + + | 01/21/ | Office | Cardiology | Aga Kelley | | | 2019 | Visit | | [address] | | | | | | [address] | | | | | | [place] [address] | | | | | | [phone] | | | | | | | | +--------+ + + + + as of this encounter Visit Diagnoses Not on filein this encounter"
--- OUTSIDE RECORDS SUMMARY | ~2018-12-07 | XMS | Clinical Summary ---
Demographics + + + | Address | [address] | | | [place] [address] | + + + | Home Phone | | + + + | Preferred Language | Unknown | + + + | Marital Status | Single | + + + | Roman Catholic Affiliation | PRO | + + [...] [place] | | | [place] | | [address] | | + + + + + Care Team Providers + +------+ + | Care Nurse School Name | Role | Phone | + +------+ + PP | Unavailable | + +------+ + Source Comments STIVEN is fully live on both [facility] and [facility] InPatient.[facility] Allergies No Known Allergies Current Medications Not [...]
--- OUTSIDE RECORDS SUMMARY | ~2018-12-07 | XMS | Encounter Summary ---
Demographics + + + | Address | [address] | | | [place] [address] | + + + | Home Phone | | + + + | Preferred Language | Unknown | + + + | Marital Status | | + + + | Bahai Affiliation | Unknown | + + + | Race | Unknown | + + + | Ethnic Group | Unknown | + + + Author + + + | Author | Rajesh GOQii | + + + | Organization | [facility] [employer] | + + + | Address | Unknown | + + + | Phone | Unavailable | + + + Support + + +---------+ + | Name | Relationship | Address | Phone | + + +---------+ + | Argenis Schmid | ECON | Unknown | | + + +---------+ + Care Team Providers + +------+ + | Care Professor Of Religion Name | Role | Phone | + [...] | | | | | | [place] | | | | | | [address] | | | | | | [phone] | | | +--------+ + + + [...] OSHEA | | | | | | [place] [address] | | | | | | [phone] | | | | | | | | +--------+ + + + + | 01/21/ | Office | Cardiology | AlekelizabethAga | | | 2019 | Visit | | [address] | | | | | | [place] | | | | | | [place] [address] | | | | | | [phone] | | | | | | | | +--------+ + + + + as of this encounter Visit Diagnoses Not on filein this encounter"
--- OUTSIDE RECORDS SUMMARY | ~2018-12-07 | XMS | Clinical Summary ---
Demographics + + + | Address | [address] | | | [place] [address] | + + + | Home Phone | | + + + | Preferred Language | Unknown | + + + | Marital Status | | + + + | Rastafarian Affiliation | Unknown | + + + | Race | Unknown | + + + | Ethnic Group | Unknown | + + + Author + + + | Author | Rajesh Tookitaki | + + + | Organization | [facility] [employer] | + + + | Address | Unknown | + + + | Phone | Unavailable | + + + Support + + +---------+ + | Name | Relationship | Address | Phone | + + +---------+ + | Argenis Schmid | ECON | Unknown | | + + +---------+ + Care Team Providers + +------+ + | Care Match Up Worker Name | Role | Phone | [...] + + + + | Overview: Paroxysmal, [id number] VASc 2 | + + + +---+ [...] OSHEA | | | | | | [place] [address] | | | | | | [phone] | | | | | | | | +--------+ + + + + | 01/21/ | Office | | Aga Kelley | | | 2019 | Visit | | [address] | | | | | | [address] | | | | | | [place] [address] | | | | | | [phone] | | | | | | | [...] + + + + | Calculated P [place] | 72 | degrees | [facility] | + + + + + | Calculated R [place] | 68 | degrees | [facility] | + + + + + | Calculated T [place] | 71 | degrees | [facility] [...] | | | | | by [facility] [place] Read Only, | | | | | [facility] [place] ([id number]), | | | | | editor news Dung Dominguez | | | | | (253) on 11/19/2018 | | | | | 9:17:15 AM | | | + + + + + + + + + + | Performing | Address | City/State/Zipcode | Phone Number | | Organization | | | | + + + + + | [facility] | [address] | [place] [address] | | + + + + + [...] +------+-------+ + | MEDICARE | MEDICA | [id number] | | | [address] | | | RE | | | | [place] [address] | | | IP-OP | | | | | + +--------+ +------+-------+ + | [employer] [place] | MUTUAL | [id number] | | | | | | OF | | | | | | | [place] | | | | | + +--------+ [...] | Self | [birth year] Home: | [address] | | | al/Fam | | 1951 | [phone] [place], | | | gael | | | [address] | [place] [address] | + +--------+ +--------+ + +
--- OUTSIDE RECORDS SUMMARY | ~2018-12-07 | XMS | Clinical Summary ---
Demographics + + + | Address | [address] | | | [place] [address] | + + + | Home Phone | | + + + | Preferred Language | Unknown | + + + | Marital Status | | + + + | Mormonism Affiliation | Unknown | + + + | Race | Unknown | + + + | Ethnic Group | Unknown | + + + Author + + + | Author | [facility] | | | and Arnolana | + + + | Organization | [facility] | | | [...] Team Providers + +------+ + | Care Dial Lathe Operator Name | Role | Phone | [...] | mouth once daily | | | 3 | | e | | LEVOTHROID) 137 [...] | | + + + +---------+------+------+-------+ | CARTIA XT 180 MG | take 1 capsule by | | 0 | 04/0 | | Activ | | 24 hr capsule | mouth once daily FOR | | | 03/26 | | e | | | ATRIAL FIBRILLATION | | | 19 | | | + + + +---------+------+------+-------+ | flecainide | take 1 tablet by | | 0 | 04/1 | | Activ | | (TAMBOCOR) 50 MG | mouth twice a day | | | 820 | | e | | tablet | | | | 19 | | | + + + +---------+------+------+-------+ | levothyroxine | take 1 tablet by | | 0 | 04/1 | | Activ | | (SYNTHROID) 150 mcg | mouth once daily | | | 8/20 | | e | | tablet | | | | 19 | | | + + + +---------+------+------+-------+ | XARELTO 20 MG | take 1 tablet by | | 0 | 04/0 | | Activ | | tablet | mouth every evening | | | 3/20 | | e | | | with food | | | 19 | | | + + + +---------+------+------+-------+ | timolol maleate | instill 1 drop into | | 0 | 02/2 | | Activ | | (TIMOPTIC) 0.5% | right eye every | | | 6/20 | | e | | ophthalmic solution | morning | | | 19 | | | + + + +---------+------+------+-------+ Active Problems + + + | Problem | Noted Date | + + + | Atrial fibrillation | 10/12/2018 | + + + + + | Overview: Paroxysmal, [id number] VASc 2 | + + + + + | Lumbar radiculopathy | [...] | Office | | Michael Talley, | Lumbar radiculopathy | | 2018 | Visit | | GALILEA | (Primary Dx) | +--------+---------+ + + + | 09/27/ | Office | | Darlyn Rodriguez | Degenerative disc | | 2018 | Visit | | GALILEA Milner | [...] + | Blood Pressure | 130/90 | 11/28/2018 1125 PDT | + + + + | Pulse | 71 | 11/28/2018 1125 PDT | + + [...] Height | 185.4 cm (6' 1") | 11/28/20181124 PDT | + + + + | Body Mass Index | 28.89 | 11/28/20181124 PDT | + + + + Plan of Treatment +--------+---------+ + + + | Date | Type | Specialty | Care Team | Description | +--------+---------+ + + + | 01/29/ | Office | | Gordon Paula, | | | 2018 | Visit | | MD Mercedes Moreno | | | | | | [place], | | | | | | [place] [address] | | | | | | [phone] | | | | | | | | +--------+---------+ + + + | 04/01/ | Office | | Michael Talley, | | | 2018 | Visit | | GALILEA MORENO | | | | | | [place] | | | | | | [place] [address] | | | | | | [phone] | | | | | | | | +--------+---------+ + + + | 09/26/ | Office | | Darlyn Rodriguez | | | 2019 | Visit | | GALILEA Milner | | | | | | [place], | | | | | | [place] [address] | | | | | | [phone] | | | | | | | [...] +--------+ +---------+--------+ | MEDICARE | MEDICA | [id number] | 11/06/19 | [phone] | | Medica | | | RE | | 16-Pre | 5 | | re | | | PART A | | sent | | | | | | AND B | | | | | | + +--------+ +--------+ +---------+--------+ | [employer] [place] | UNITED | [id number] | 11/06/19 | [phone] | | Indemn | | | OF | | 16-Pre | 0 | | ity | | | [place] | | sent | | | | [...] Person | Self | [birth year] | [address] | | | al/Fam | | 1950 | [phone] | [place], | | | gael | | | 8 (Home) | [place] [address] | + +--------+ +--------+ + + Advance Directives Patient has advance care planning documents on file. For more information, please contact:[facility] [place] [address]
--- OUTSIDE RECORDS SUMMARY | ~2018-12-07 | XMS | Clinical Summary ---
Demographics + + + | Address | [address] | | | [place] [address] | + + + | Home Phone | | + + + | Preferred Language | Unknown | + + + | Marital Status | | + + + | Yarsanism Affiliation | Unknown | + + + | Race | Unknown | + + + | Ethnic Group | Unknown | + + + Author + + + | Author | [facility] | | | and Arnolana | + + + | Organization | [facility] | | | [...] Team Providers + +------+ + | Care Bleaching Supervisor Name | Role | Phone | + +------+ + | Alisson ePrry MD | PP | | + +------+ [...] + + + + | Overview: Paroxysmal, [id number] VASc 2 | + + + + [...] [place], | | | | | | [place] [address] | | | | | | [phone] | | | | | | | | +--------+---------+ + + + | 04/01/ | Office | | Michael Talley, | | | 2018 | Visit | | GALILEA MORENO | | | | | | [place] | | | | | | [place] [address] | | | | | | [phone] | | | | | | | | +--------+---------+ + + + | 09/26/ | Office | | Darlyn Rodriguez | | | 2019 | Visit | | GALILEA Milner | | | | | | [place], | | | | | | [place] [address] | | | | | | [phone] | | | | | | | [...] +--------+ +---------+--------+ | MEDICARE | MEDICA | [id number] | 11/06/19 | [phone] | | Medica | | | RE | | 16-Pre | 5 | | re | | | PART A | | sent | | | | | | AND B | | | | | | + +--------+ +--------+ +---------+--------+ | [employer] [place] | UNITED | [id number] | 11/06/19 | [phone] | | Indemn | | | OF | | 16-Pre | 0 | | ity | | | [place] | | sent | | | | [...] Person | Self | [birth year] | [address] | | | al/Fam | | 1950 | [phone] | [place], | | | gael | | | 8 (Home) | [place] [address] | + +--------+ +--------+ + + Advance Directives Patient has advance care planning documents on file. For more information, please contact:[facility] [address]
--- OUTSIDE RECORDS SUMMARY | ~2018-12-07 | XMS | Encounter Summary ---
Demographics + + + | Address | [address] | | | [place] [address] | + + + | Home Phone | | + + + | Preferred Language | Unknown | + + + | Marital Status | | + + + | Gnosticist Affiliation | Unknown | + + + | Race | Unknown | + + + | Ethnic Group | Unknown | + + + Author + + + | Author | [facility] [employer] | + + + | Organization | [facility] [employer] | + + + | Address | Unknown | + + + | Phone | Unavailable | + + + Support + + +---------+ + | Name | Relationship | Address | Phone | + + +---------+ + | Argenis Schmid | ECON | Unknown | | + + +---------+ + Care Team Providers + +------+ + | Care Clother In Name | Role | Phone | + [...] [place], | | | | | [place], [place] | [place] [address] | | | | | [address] | [phone] | | | | | [phone] | (Fax) | | +--------+ + + [...] | | | | | [place] [address] | | | | | | [phone] | | | | | | | | +--------+ + + + + | 01/21/ | Office | Cardiology | AlekelizabethAga | | | 2019 | Visit | | [address] | | | | | | [place] | | | | | | [place] [address] | | | | | | [phone] | | | | | | | | +--------+ + + + + as of this encounter Visit Diagnoses Not on filein this encounter"
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
--- OUTSIDE RECORDS SUMMARY | ~2018-12-07 | XMS | Encounter Summary ---
Demographics + + + | Address | [address] | | | [place] [address] | + + + | Home Phone | | + + + | Preferred Language | Unknown | + + + | Marital Status | | + + + | Scientology Affiliation | Unknown | + + + | Race | Unknown | + + + | Ethnic Group | Unknown | + + + Author + + + | Author | [facility] | | | and Arnolana | + + + | Organization | [facility] | | [...] Team Providers + +------+ + | Care Jawbone Breaker Name | Role | Phone | + [...] (Primary Dx); Lumbar | | | | [place], [place] | [place] [address] | radiculopathy | | | | [address] | [phone] | | | | | [phone] | | | +--------+---------+ + + + [...] encounter Patient Instructions Patient Instructions Francis Sherwood, Log Driver - 09/27/2018 12:30 PSTIt was a pleasu [...] 09/27/2018 1230 PST Marilu Rodriguez PA-C [address] [facility] [place] [place], [address] [place] [address] PHONE: FAX: NEUROSURGERY FOLLOW-UP CHIEF COMPLAINT: Chief [...] has no apparent deficits with short or jail memory. CRANIAL NERVES: II: Acuity is intact. [...] | | | | | | [place], | | | | | | [place] [address] | | | | | | [phone] | | | | | | | | +--------+---------+ + + + | 04/01/ | Office | Physical Medicine | Michael Talley, | | | 2018 | Visit | and Rehabilitation | GALILEA [address] | | | | | | [address] [place] | | | | | | [place] [address] | | | | | | [phone] | | | | | | | | +--------+---------+ + + + | 09/26/ | Office | Neurosurgery | Darlyn Rodriguez | | | 2019 | Visit | | GALILEA Milner [address] | | | | | | [place], | | | | | | [place] [address] | | | | | | [phone] | | | | | | | [...]
--- OUTSIDE RECORDS SUMMARY | ~2018-12-07 | XMS | Encounter Summary ---
Demographics + + + | Address | [address] | | | [place] [address] | + + + | Home Phone | | + + + | Preferred Language | Unknown | + + + | Marital Status | | + + + | Synagogue Affiliation | Unknown | + + + | Race | Unknown | + + + | Ethnic Group | Unknown | + + + Author + + + | Author | [facility] [employer] | + + + | Organization | [facility] [employer] | + + + | Address | Unknown | + + + | Phone | Unavailable | + + + Support + + +---------+ + | Name | Relationship | Address | Phone | + + +---------+ + | Argenis Schmid | ECON | Unknown | | + + +---------+ + Care Team Providers + +------+ + | Care Custom Home Installer Name | Role | Phone | + +------+ + | Alisson Perry MD | PCP | | + +------+ + Reason for Visit + + + | Reason | Comments | + + + | Cardiac Event | 30 day | | Monitor | | + + + Holter (Routine) +--------+--------+ + + + + | Status | Reason | Specialty | Diagnoses / | Referred By | Referred To | | | | | Procedures | Contact | Contact | +--------+--------+ + + + + | Closed | | Cardiology | Procedures | Allie | Cody | | | | | CRD EVENT | Aga Ferreira, | Cardiology | | | | | MONITOR | ACCOUNT EXECUTIVE [address] | [address] | | | | | | [address] | [address] | | | | | | [address] | [address] | | | | | | [place], [place] | [place], | | | | | | [address] | [place] [address] | | | | | | Phone: | Phone: | | | | | | [phone] | [phone] | | | | | | Fax: | Fax: | | | | | | [phone] | [phone] | +--------+--------+ + + + + Encounter Details +--------+ + + + + | Date | Type | Department | Care Team | Description | +--------+ + + + + | 12/03/ | Documentati | [facility] [place] | Livan Astorga, | Cardiac Event | | 2019 | on Only | Cardiology [place] | MD [address] | Monitor (30 day) | | | | [address] | [place], | | | | | [address] | [place] [address] | | | | | [place] [address] | [phone] | | | | | [phone] | | | | | | | Shayla Yee MA | | +--------+ + + + [...] + + + as of this encounter Progress Notes Shayla Yee MA - 12/03/2018 4:00 PM PDT day manager cardiac cath placed on patient. EOB/B illing information discussed. Instructions given and understood. Patient instructed to ryan Cazares for any billing or monitor questions. in this encounter Plan of Treatment +--------+ + + + + | Date | Type | Specialty | Care Team | Description | +--------+ + + + + | 12/19/ | Initial | Cardiology | Raymond More | | | 2019 | consult | | MD [address] | | | | | | [place] | | | | | | [place] [address] | | | | | | [phone] | | | | | | | | +--------+ + + + + | 01/21/ | Office | Cardiology | Aga Kelley | | | 2019 | Visit | | [address] | | | | | | [place] | | | | | | [place] [address] | | | | | | [phone] | | | | | | | | +--------+ + + + + as of this encounter Visit Diagnoses + + | Diagnosis | + + | Paroxysmal atrial fibrillation (HCC) | + + | Atrial fibrillation | + + | Frequent PVCs | + + | Other premature beats | + +"
--- OUTSIDE RECORDS SUMMARY | ~2018-12-07 | XMS | Encounter Summary ---
Demographics + + + | Address | [address] | | | [place] [address] | + + + | Home Phone | | + + + | Preferred Language | Unknown | + + + | Marital Status | | + + + | Yarsanism Affiliation | Unknown | + + + | Race | Unknown | + + + | Ethnic Group | Unknown | + + + Author + + + | Author | [facility] [employer] | + + + | Organization | [facility] [employer] | + + + | Address | Unknown | + + + | Phone | Unavailable | + + + Support + + +---------+ + | Name | Relationship | Address | Phone | + + +---------+ + | Argenis Schmid | ECON | Unknown | | + + +---------+ + Care Team Providers + +------+ + | Care Compliance Field Technician Name | Role | Phone | + [...] | | | | of breath) | [address] | [address] | | | | | on exertion | Phone: | Phone: | | | | | Narinder | [phone] | [phone] | | | | | coronary | Fax: | Fax: | | | | | artery | [phone] | [phone] | | | | | calcium | [...] | Specialty | Sleep | Diagnoses | [place], | Lab, Chi | | | Services | Medicine | Paroxysmal | Livan Thomson, | [facility] | | | Required | | atrial | MD [address] | Sleep | | | | | fibrillation | [address] | Disorders | | | | | ([facility]) | [address] | [facility] | | | | | Obstructive | [place], [place] | HOSPITAL | | | | | sleep apnea | [address] | [address] | | | | | syndrome in | Phone: | [address] | | | | | adult SOB | [phone] | [place], [place] | | | | | (shortness | Fax: | [address] | | | | | of breath) | [phone] | Phone: | | | | | on exertion | | [phone] | | | | | | | Fax: | | | | | | | [phone] | + + + + + + [...] | DR | | | | | ([facility]) | [address] | [place] | | | | | Frequent | [place] | [address] | | | | | PVCs | [address] | Phone: | | | | | | Phone: | [phone] | | | | | | [phone] | Fax: | | | | | | Fax: | [phone] | | | | | | [phone] | | + + + + + [...] Dr Oshea | | | | | ([facility]) | [place], | [place] | | | | | Procedures | [place] [address] | [address] Phone: | | | | | Consult | Phone: | [phone] | | | | | | [phone] | Fax: | | | | | | Fax: | [phone] | | | | | | [phone] | | +--------+--------+ + + + + Encounter Details +--------+ + + + + | Date | Type | Department | Care Team | Description | +--------+ + + + + | 11/19/ | Initial | [facility] [place] | Livan Astorga, | Paroxysmal atrial | | 2019 | consult | Cardiology Garo | [address] | fibrillation ([facility]) | | | | [address] | [place], Shayna (Primary Dx); | | | | [place], [place] | [place] [address] | Frequent PVCs; | | | | [address] | [phone] | Hyperlipidemia, | | | | [phone] | | unspecified | | | | [...] cardiology evaluati on, after being [facility] to [facility] 10/12-04[facility]25 for paroxysmal atrial fibrillati on. He [...] second episode in November, was seen at [facility] ER 11/11/18, and a repeat troponin [...] been followed by Gordon Paula MD in [place] for frequent PVCs, h ad become asymptomatic [...] for a sleep stud y at the [facility] sleep clinic. I will see him back [...] Diagnosis Date Atrial fibrillation (HCC) 10/12/2018 Paroxysmal, [id number] VASc 2 BPH (benign prostatic hyperplasia) DDD [...] Ambulatory referral to Sleep Studies - NM CDOY Treadmill Stress no imaging; Future Frequent PVCs - Ambulatory referral to Cardiac Electrophysiology - CRD Cardiac Event Monitor; Future Hyperlipidemia, unspecified hyperlipidemia type Acquired hypothyroidism Obstructive sleep apnea syndrome in adult - Ambulatory referral to Sleep Studies SOB (shortness of breath) on exertion - Ambulatory referral to Sleep Studies - NM COYD Treadmill Stress no imaging; Future Agatston coronary [...] [address] | | | | | | [place] [address] | | | | | | [phone] | | | | | | | | +--------+ + + + + | 01/21/ | Office | Cardiology | Aga Kelley | | | 2019 | Visit | | [address] | | | | | | [address] [place] | | | | | | [place] [address] | | | | | | [phone] | | | | | | | [...] + + + in this encounter Results [facility] STANDARD 12 LEAD (11/19/2018 9:14 AM) [...] + + + + | Calculated P [place] | 72 | degrees | [facility] | + + + + + | Calculated R [place] | 68 | degrees | [facility] | + + + + + | Calculated T [place] | 71 | degrees | [facility] | + + + + + | Diagnosis | Sinus rhythm with | | [facility] | | | Premature [...] | | | | | by [facility] [place] Read Only, | | | | | I[facility] [address] (502), | | | | | avid editor Dung Dominguez | | | | | (253) on 11/19/2018 | | | | | 9:17:15 AM | | | + + + + + + + + + + | Performing | Address | City/State/Zipcode | Phone Number | | Organization | | | | + + + + + | [facility] | [address] | [place] [address] | | + + + + + [...]
--- OUTSIDE RECORDS SUMMARY | ~2018-12-07 | XMS | Encounter Summary ---
Demographics + + + | Address | [address] | | | [place] [address] | + + + | Home Phone | | + + + | Preferred Language | Unknown | + + + | Marital Status | | + + + | Mormonism Affiliation | Unknown | + + + | Race | Unknown | + + + | Ethnic Group | Unknown | + + + Author + + + | Author | Rajesh Njini | + + + | Organization | [facility] [facility] | + + + | Address | Unknown | + + + | Phone | Unavailable | + + + Support + + +---------+ + | Name | Relationship | Address | Phone | + + +---------+ + | Argenis Schmid | ECON | Unknown | | + + +---------+ + Care Team Providers + +------+ + | Care Motor Equipment Captain Name | Role | Phone | + [...] | | | | | MONITOR | HOTEL MAINTENANCE TECHNICIAN [address] | | | | | | [address] | [address] | | | | | | [address] | [address] | | | | | | [place], [place] | [place], | | | | | | [address] | [place] [address] | | | | | | Phone: | Phone: | | | | | | [phone] | [phone] | | | | | | Fax: | Fax: | | | | | | [phone] | [phone] | +--------+--------+ + + + + Encounter Details +--------+ + + + + | Date | Type | Department | Care Team | Description | +--------+ + + + + | 12/03/ | Documentati | [facility] | Livan Astorga, | Cardiac Event | | 2019 | on Only | Cardiology [place] | MD [address] | Monitor (30 day) | | | | [address] | [address] [place], | | | | | [address] | [place] [address] | | | | | [place] [address] | [phone] | | | | | [phone] | | | | | | | [...] MA - 12/03/2018 4:00 PM PDT day boilermaker welder placed on patient. EOB/B illing information discussed. [...] [address] | | | | | | [place] [address] | | | | | | [phone] | | | | | | | | +--------+ + + + + | 01/21/ | Office | Cardiology | Aga Kelley | | | 2019 | Visit | | [address] | | | | | | [address] | | | | | | [place] [address] | | | | | | [phone] | | | | | | | | +--------+ + + + + as of this encounter Visit Diagnoses + + | Diagnosis | + + | Paroxysmal atrial fibrillation (HCC) | + + | Atrial fibrillation | + + | Frequent PVCs | + + | Other premature beats | + +"
[~2018-12-07 07:57] MED LIST changes: +FLECAINIDE ACET50 MG PO
--- OUTSIDE RECORDS SUMMARY | 2018-12-07 08:00 | XMS ---
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 11/12/2018-Rashawn SPRAGUE PHONE: [phone] Ildefonso Pillai MD Primary Care Current PHONE: Unknown orgenny Case or Fire Tender Current PHONE: Unknown Jemal PILLAI Current PHONE: Unknown Lara has no Care Guidelines for this patient. 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 - Patient is currently established with [facility]. If patient is seen in the ED during business hours. Please contact CHWs at [facility]. Care Recommendation: This patient has had 5 [...] providing care. E.D. VISIT COUNT (12 MO.) 4 [facility] TOTAL 4 NOTE: Visits indicate total known visits. ED/UCC VISIT TRACKING (12 MO.) 12/07/2018 07:57 [facility] TYPE: Emergency COMPLAINT: - RAPID HB 11/22/2018 09:49 [facility] [place] TYPE: Emergency COMPLAINT: - RAPID HEART RATE DIAGNOSES: - Personal history of nicotine dependence - Hypothyroidism, unspecified - Tachycardia, unspecified - Other shelter (current) drug therapy - Unspecified atrial fibrillation 11/11/2018 16:40 [facility] [place] TYPE: Emergency COMPLAINT: - ABNORMAL HEARTBEAT DIAGNOSES: - Unspecified atrial fibrillation - Other shelter (current) drug therapy - Hypothyroidism, unspecified - Palpitations - Personal history of nicotine dependence 10/12/2018 15:46 [facility] [place] TYPE: Emergency COMPLAINT: - RAPID HEARTBEAT INPATIENT VISIT TRACKING (12 MO.) 10/12/2018 15:47 [facility] [place] TYPE: Observation COMPLAINT: - A-FIB DIAGNOSES: - Unspecified atrial flutter - 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
[2018-12-07] MEDS ORDERED: CARTIA XT180 MG PO (08:17)
[2018-12-07] MEDS ORDERED: SYNTHROID150 MCG PO (08:18)
--- NOTE | 2018-12-07 14:03 | EKG ---
[facility] [address] [place] [address] Signed Sinus tachycardia with premature ventricular complexes or fusion complexes Right superior axis deviation Inferior infarct (cited on or before 12-OCT-2018) Abnormal ECG When compared with ECG of 22-NOV-2018 10:48, fusion complexes are now present Vent. rate has increased BY 58 BPM Questionable change in QRS axis Confirmed by THALIA SMITH DO ([id number]) on 12/07/2018 2:03:17 PM Electronically Signed By: THALIA SMITH DO 12/07/18 1403 PATIENT NAME: KITA POTTER Electrocardiogram DATE OF : 50 PHYSICIAN: THALIA SMITH DO REPORT #: [id number] REPORT IS CONFIDENTIAL AND NOT TO BE RELEASED WITHOUT AUTHORIZATION
--- NOTE | 2018-12-07 14:03 | EKG ---
[facility] [address] [place] [address] Signed Sinus bradycardia Possible Inferior infarct (cited on or before 12-OCT-2018) Abnormal ECG When compared with ECG of 07-DEC-2018 08:10, (Unconfirmed) fusion complexes are no longer present premature ventricular complexes are no longer present Vent. rate has decreased BY 63 BPM Questionable change in QRS axis Nonspecific T wave abnormality now evident in Lateral leads Confirmed by THALIA SMITH DO ([id number]) on 12/07/2018 2:03:31 PM Electronically Signed By: THALIA SMITH DO 12/07/18 1403 PATIENT NAME: KITA POTTER Electrocardiogram DATE OF : 50 PHYSICIAN: THALIA SMITH DO REPORT #: [id number] REPORT IS CONFIDENTIAL AND NOT TO BE RELEASED WITHOUT AUTHORIZATION
== END 2018-12-07 12:25 | disposition home or self-care (01) ==
LOC: ED 07:57
DX: I48.91 Unspecified atrial fibrillation (principal); E03.9 Hypothyroidism, unspecified; Z87.891 Personal history of nicotine dependence; Z79.899 Other long term (current) drug therapy
CPT/HCPCS: 80053; 83880; 84484; 85025; 93005; 93010; 96361; 96374; 99285-25; J2704; J7040

== ENCOUNTER 2025-05-12 11:58 | Day surgery (SDC) | payer MEDICARE, OTHER ==
[~2025-05-12] VITALS: Ht 185.4 cm; Wt 90.9 kg
[~2025-05-12 11:58] MED LIST changes: +CARTIA XT180 MG PO; +CEFAZOLIN SODIUM 2 GM in SODIUM CHLORIDE 0.9% 100 ML IV SCH; +IBLOOD GLUCOSE TEST STRIP 1 EA TEST VI PRN; +LACTATED RINGER'S 1,000 ML IV SCH; +LIDOCAINE HCL 1% 5 ML SDV INJ ONE; +LIDOCAINE HCL 4% 50 ML BTL TOP SCH; +LIPITOR40 MG PO; +MIDAZOLAM HCL 5 MG/5 ML VIAL IV PRN; +OXYCODONE HCL5 MG PO; +SYNTHROID150 MCG PO; +TYLENOL325 MG PO; +fentaNYL citrate 100 MCG/2 ML VIAL IV PRN
[2025-05-12 12:19] VITALS: BP 125/72
[2025-05-12] MEDS ORDERED: METOPROLOL SUCC50 MG PO (12:22)
[2025-05-12] MEDS ORDERED: PERCOCET 5-3251 EACH PO (12:23)
[2025-05-12] MEDS ORDERED: MIDAZOLAM HCL 5 MG/5 ML VIAL ONE (12:55)
[2025-05-12] MEDS ORDERED: fentaNYL citrate 100 MCG/2 ML VIAL ONE (12:56)
--- NOTE | 2025-05-12 14:12 | NUR ---
05/12/25 1412 Marcy Estrada 1334- PT PRESENTS TO PACU, LEFT LATERAL SEMI HOSKINS POSITION, REACTIVE TO STIMULUS. BREATHING EVEN AND NON LABORED, O2 AT 3L PER NC. LR INFUSING TO RFA IV. ABD SOFT, NON DISTENDED. PT RESPONDS AND FALLS BACK TO SLEEP. ALL MONITORS IN PLACE. 1340- PT WAKES, STATES "AM I DONE?" REORIENTED TO TIME AND PLACE. PT FALLS BACK TO SLEEP. 1342- MOVED TO ROOM AIR. 1355- DR BALDERRAMA AT BEDSIDE TO DISCUSS FINDINGS. 1408- LABS DRAWN FROM IV SITE. PT SITTING UP CONVERSING WITH STAFF.
[2025-05-12 14:16] VITALS: BP 115/88
--- NOTE | 2025-05-12 18:20 | OR ---
[facility] [address], [place] [address] Signed DATE OF OPERATION: 05/12/2025 SURGEON: Nazanin Balderrama MD PREOPERATIVE DIAGNOSES: 1. Proximal dysphagia. 2. Proximal muscle weakness (limbs). 3. Known gastroesophageal reflux on Pepcid. POSTOPERATIVE DIAGNOSES: 1. Normal-appearing esophagus without evidence of stricture or felinization. 2. Mild antral gastritis. PROCEDURES: Esophagogastroduodenoscopy with biopsy. ANESTHESIA: Intravenous sedation, fentanyl 100 mcg and Versed 4 mg. INDICATION: This 74-year-old white man is a patient of Dr. Luther Mishra and referred for upper endoscopy. The patient has dysphagia to solid foods which include cookies and pistachios. Mostly this is in the proximal hypopharynx. He also has associated sinus drainage which has been going on for over a year. He does admit to "heartburn" for which he takes Pepcid, which helps the heartburn, but no benefit on the proximal cervical dysphagia. The patient also describes significant muscle weakness in the proximal limbs, particularly in the lower extremities. This has been progressive and problematic and of uncertain etiology. He is admitted at this time to undergo upper endoscopy to better characterize his dysphagia. He understands the risk of bleeding, infection, and perforation. FINDINGS: Proximal, middle and lower esophagus was entirely normal. There was no evidence of stricture, Sánchez's epithelium or signs of eosinophilic esophagitis (concentric ring/felinization). The stomach itself had mild antral gastritis. CLOtest was negative at 20 minutes. There was no sign of ulcer or gastric outlet obstruction. The flap valve was marginal. Electronically Signed By: NAZANIN BALDERRAMA MD 05/12/25 1820 PATIENT NAME: KITA POTTER OPERATIVE REPORT DATE OF : 50 REPORT #: [id number] PHYSICIAN: NAZANIN BALDERRAMA MD PCP: LUTHER MISHRA MD REPORT IS CONFIDENTIAL AND NOT TO BE RELEASED WITHOUT AUTHORIZATION [facility] [address], [place] [address] Signed DESCRIPTION OF PROCEDURE: The patient was brought to the endoscopy suite, given topical lidocaine hypopharyngeal anesthesia and placed in lateral decubitus position. He was given intravenous sedation to the point of slurred speech and nystagmus. A bite block was placed. An Olympus video upper endoscope was passed into the hypopharynx. Vocal cords appeared normal. Scope was easily passed into the esophagus proper. Scope was advanced throughout the esophagus, ultimately intubating the stomach. Rugal folds were normal. There was mild antral gastritis. The pylorus was normal. Scope was passed through into the duodenum. Biopsies were obtained of the duodenum to assess for celiac disease and subsequently scope withdrawn to the antrum to allow for biopsy with for both JAGUAR and pathologic testing. Retroflexed view was undertaken showing a marginal flap valve but no sign of large hiatal hernia. Scope was withdrawn and a normal-appearing esophagus was then biopsied in the distal and middle portions. Scope was carefully withdrawn as proximal esophagus was normal also. Scope was removed. The patient was taken to recovery room in good condition. CONCLUDING DIAGNOSIS: Proximal cervical dysphagia without associated pathologic finding on endoscopy. This may be a primary dysmotility disorder and its relationship to proximal muscle weakness must not be overlooked. At this time, we will order a serum CK, aldolase, TSH, and autoantibodies including JENNIFER titer and myositis panel. We will change his medication to Prilosec from Pepcid for the time being and see if there is any significant benefit. Relationship to his sinus drainage is uncertain, but would be less likely to cause actual dysphagia. We will see him back in the office in four weeks. MD [place] Carey/MODL /[id number] cc: Luther Mishra MD Electronically Signed By: NAZANIN BALDERRAMA MD 05/12/25 1820 PATIENT NAME: KITA POTTER OPERATIVE REPORT DATE OF : 50 REPORT #: [id number] PHYSICIAN: NAZANIN BALDERRAMA MD PCP: LUTHER MISHRA MD REPORT IS CONFIDENTIAL AND NOT TO BE RELEASED WITHOUT AUTHORIZATION [facility] [address], [place] [address] Signed Copies: LUTHER MISHRA DMD ~ Electronically Signed By: NAZANIN BALDERRAMA MD 05/12/251819 PATIENT NAME: KITA POTTER OPERATIVE REPORT DATE OF : 50 REPORT #: [id number] PHYSICIAN: NAZANIN BALDERRAMA MD PCP: LUTHER MISHRA MD REPORT IS CONFIDENTIAL AND NOT TO BE RELEASED WITHOUT AUTHORIZATION
--- NOTE | 2025-05-14 14:36 | PATH ---
[facility] [address], [place] [address] Signed SPECIMEN(S): A DUODENAL BIOPSY SPECIMEN(S): B ANTRUM BIOPSY SPECIMEN(S): C LOWER ESOPHAGEAL BIOPSY SPECIMEN(S): D MIDDLE ESOPHAGEAL BIOPSY SPECIMEN SOURCE: A. DUODENAL BIOPSY B. ANTRUM BIOPSY C. LOWER ESOPHAGEAL BIOPSY D. MIDDLE ESOPHAGEAL BIOPSY CLINICAL HISTORY: Pre--dysphagia and reflux. Post-mild antral gastritis A-D) biopsy FINAL PATHOLOGIC DIAGNOSIS: A. Duodenal biopsy: - Mild chronic duodenitis with features suggestive of peptic duodenitis. - Negative for villous blunting or increase in intraepithelial lymphocytes. B. Antrum biopsy: - Mild chronic gastritis with features of reactive gastropathy. - Immunohistochemical stain for H. pylori is negative for organisms (valid control). - Negative for intestinal metaplasia. C. 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 See comment - Negative for goblet cell metaplasia. D. Middle esophageal biopsy - Esophageal squamous mucosa with reactive changes and scattered eosinophils. - Negative for goblet cell metaplasia. COMMENT: The lower esophageal biopsy demonstrates reactive basal zone hyperplasia with an increase in eosinophils estimated at 28 eosinophils in high power field. These features are consistent with eosinophilic esophagitis in the proper clinical context. NA MICROSCOPIC EXAMINATION: Histologic sections of all submitted blocks are examined by light microscopy. PATIENT NAME: KITA POTTER PATHOLOGY DATE OF : 50 REPORT #: [id number] PHYSICIAN: YAMILA PATHOLOGY PCP: LUTHER MISHRA MD REPORT IS CONFIDENTIAL AND NOT TO BE RELEASED WITHOUT AUTHORIZATION [facility] [address], [place] [address] Signed These findings, together with the gross examination, support the pathologic diagnosis. GROSS DESCRIPTION: A. The specimen, labeled and designated "[place], duodenal biopsy," is received in formalin and consists of one kan soft tissue fragment, 0.5 cm. Entirely submitted in (A1). B. The specimen, labeled and designated "[place], antrum biopsy," is received in formalin and consists of one kan soft tissue fragment, 0.3 cm. Entirely submitted in (B1). C. The specimen, labeled and designated "[place], lower esophageal biopsy," is received in formalin and consists of two kan soft tissue fragments, ranging from 0.3-0.7 cm. Entirely submitted in (C1). D. The specimen, labeled and designated "[place], middle esophageal biopsy," is received in formalin and consists of three kan soft tissue fragments, ranging from 0.4-0.6 cm. Entirely submitted in (D1). AB (under the direct supervision of a pathologist) The Gross Description was prepared using a voice recognition system. The report was reviewed for accuracy; however, sound-alike word errors, addition and/or deletions may occur. If there is any question about this report, please contact Client Services. ADDITIONAL NOTES: Immunohistochemical and/or in situ hybridization studies if performed in this case included appropriate positive controls that reacted as expected. This test was developed and its performance characteristics determined by [facility]. It has not been cleared or approved by the U.S. Food and Drug Administration. The FDA has determined that such clearance or approval is not necessary. This test is used for clinical purposes. It should not be regarded as investigational or for research. [facility] is certified under the Clinical Laboratory Improvement Amendments of 1988 (CLIA) as qualified to perform high complexity clinical laboratory testing. PERFORMING LABORATORY: Technical component was performed by [facility], [facility] [place] [address] (CLIA# [id number]). Professional interpretation [facility], [address] PATIENT NAME: KITA POTTER PATHOLOGY DATE OF : 50 REPORT #: [id number] PHYSICIAN: YAMILA BLACK PCP: LUTHER MISHRA MD REPORT IS CONFIDENTIAL AND NOT TO BE RELEASED WITHOUT AUTHORIZATION [facility] [address] [place] [address] Signed [facility] [address] (CLIA#: [id number]). Diagnostician: Jocy Jin MD Pathologist Electronically Signed 05/14/2025 Copies: ~ PATIENT NAME: KITA POTTER PATHOLOGY DATE OF : 50 REPORT #: [id number] PHYSICIAN: YAMILA BLACK PCP: LUTHER MISHRA MD REPORT IS CONFIDENTIAL AND NOT TO BE RELEASED WITHOUT AUTHORIZATION
[2025-05-14 16:35] LABS: TSH RECEPTOR ANTIBODY <1.10 IU/L (<=1.75)
[2025-05-14 17:17] LABS: ALDOLASE 12.4 U/L (1.2-7.6)
== END 2025-05-12 14:30 | disposition home or self-care (01) ==
LOC: DS 11:58
PROVIDERS: ATTEND Surgery
PROC: 0DB68ZX Excision of Stomach, Via Natural or Artificial Opening Endoscopic, Diagnostic (ICD-10-PCS; 2025-05-12)
PROC: 0DB28ZX Excision of Middle Esophagus, Via Natural or Artificial Opening Endoscopic, Diagnostic (ICD-10-PCS; 2025-05-12)
PROC: 0DB38ZX Excision of Lower Esophagus, Via Natural or Artificial Opening Endoscopic, Diagnostic (ICD-10-PCS; 2025-05-12)
PROC: 0DB98ZX Excision of Duodenum, Via Natural or Artificial Opening Endoscopic, Diagnostic (ICD-10-PCS; principal; 2025-05-12 13:00)
DX: K20.0 Eosinophilic esophagitis (principal); K29.80 Duodenitis without bleeding; K29.50 Unspecified chronic gastritis without bleeding; K31.89 Other diseases of stomach and duodenum; K21.9 Gastro-esophageal reflux disease without esophagitis; I10 Essential (primary) hypertension; E03.9 Hypothyroidism, unspecified; Z87.891 Personal history of nicotine dependence; Z79.890 Hormone replacement therapy; Z79.899 Other long term (current) drug therapy
CPT/HCPCS: 36415; 82085; 82550; 88305; 88342; 99153; G0500; J0688; J2250; J3010; J7121